=== PATIENT | female | born 1990 | race American Indian/Alaskan Native ===

== ENCOUNTER 2016-09-24 13:28 | Emergency (ER) | payer OTHER ==
[~2016-09-24] VITALS: Ht 175.3 cm; Wt 113.4 kg
[~2016-09-24 13:28] MED LIST: CLINDAMYCIN HC300 MG PO; DEPO-PROVE150 MG/1 M IM; IBUPROFEN200 MG PO; IBUPROFEN600 MG PO; NORCO 5-325 TA1 EACH PO; PRENATAL LOW I1 EACH PO; TYLENOL325 MG PO; VICODIN 5-3001 EACH PO; ZOFRAN ODT8 MG PO
== END 2016-09-24 15:46 | disposition home or self-care (01) ==
LOC: ED 13:28
DX: R42 Dizziness and giddiness (principal); R03.1 Nonspecific low blood-pressure reading; D50.9 Iron deficiency anemia, unspecified; Z79.899 Other long term (current) drug therapy
CPT/HCPCS: 80053; 81001; 84703; 85025; 96360; 96361; 99283; J7030

== ENCOUNTER 2016-09-30 09:15 | Emergency (ER) | payer OTHER ==
[~2016-09-30] VITALS: Ht 175.3 cm; Wt 113.4 kg
[2016-09-30] MEDS ORDERED: ZOFRAN ODT4 MG PO (10:22)
== END 2016-09-30 11:10 | disposition home or self-care (01) ==
LOC: ED 09:15
DX: K52.9 Noninfective gastroenteritis and colitis, unspecified (principal); E86.0 Dehydration; Z90.49 Acquired absence of other specified parts of digestive tract
CPT/HCPCS: 81001; 84703; 99283

== ENCOUNTER 2016-12-23 22:20 | Emergency (ER) | payer OTHER ==
[~2016-12-23] VITALS: Ht 175.3 cm; Wt 113.4 kg
[~2016-12-23 22:20] MED LIST changes: +ZOFRAN ODT4 MG PO
--- NOTE | 2016-12-25 14:23 | EKG ---
[facility] [address] [facility] [place] [address] Signed Normal sinus rhythm Normal ECG No previous ECGs available Confirmed by CHRISTINA CHAVEZ MD ([id number]) on 12/25/2016 2:22:43 PM Electronically Signed By: CHRISTINA CHAVEZ MD 12/25/16 1423 PATIENT NAME: MICHELLE RAYO Electrocardiogram DATE OF : [birth year] PHYSICIAN: CHRISTINA CHAVEZ MD REPORT #: [id number] REPORT IS CONFIDENTIAL AND NOT TO BE RELEASED WITHOUT AUTHORIZATION
== END 2016-12-24 | disposition home or self-care (01) ==
LOC: ED 22:20
DX: F41.9 Anxiety disorder, unspecified (principal)
CPT/HCPCS: 71020; 80053; 83735; 84484; 84703; 85025; 93005; 93010; 99284

== ENCOUNTER 2017-01-24 22:57 | Emergency (ER) | payer OTHER ==
[~2017-01-24] VITALS: Ht 175.3 cm; Wt 117.9 kg
== END 2017-01-25 01:05 | disposition home or self-care (01) ==
LOC: ED 22:57
DX: O21.9 Vomiting of pregnancy, unspecified (principal); Z90.49 Acquired absence of other specified parts of digestive tract; Z3A.01 Less than 8 weeks gestation of pregnancy
CPT/HCPCS: 81001; 84703; 96361; 96374; 99283; J1200; J7030

== ENCOUNTER 2017-01-31 21:58 | Emergency (ER) | payer OTHER ==
[~2017-01-31] VITALS: Ht 175.3 cm; Wt 117.9 kg
[2017-01-31] MEDS ORDERED: PROMETHAZINE12.5 M1 PO (22:15)
== END 2017-02-01 01:17 | disposition home or self-care (01) ==
LOC: ED 21:58
DX: O21.0 Mild hyperemesis gravidarum (principal); Z90.49 Acquired absence of other specified parts of digestive tract; Z3A.01 Less than 8 weeks gestation of pregnancy
CPT/HCPCS: 80053; 81001; 85025; 96361; 96374; 99283; J1200; J7030; J7040

== ENCOUNTER 2017-02-03 22:07 | Emergency (ER) | payer OTHER ==
[~2017-02-03 22:07] MED LIST changes: +PROMETHAZINE12.5 M1 PO
== END 2017-02-03 22:41 | disposition left against medical advice (07) ==
LOC: ED 22:07
DX: Z53.21 Procedure and treatment not carried out due to patient leaving prior to being seen by health care provider (principal)

== ENCOUNTER 2017-02-05 10:42 | Emergency (ER) | payer OTHER ==
[~2017-02-05] VITALS: Ht 175.3 cm; Wt 117.9 kg
[2017-02-05] MEDS ORDERED: VITAMIN B-625 MG PO (12:15)
[2017-02-05] MEDS ORDERED: K-TAB ER20 MEQ PO (12:41)
== END 2017-02-05 12:58 | disposition home or self-care (01) ==
LOC: ED 10:42
DX: O21.1 Hyperemesis gravidarum with metabolic disturbance (principal); Z3A.10 10 weeks gestation of pregnancy; Z90.49 Acquired absence of other specified parts of digestive tract
CPT/HCPCS: 80048; 96360; 99283; J7030

== ENCOUNTER 2017-02-11 11:03 | Emergency (ER) | payer OTHER ==
[~2017-02-11] VITALS: Ht 175.3 cm; Wt 117.9 kg
[~2017-02-11 11:03] MED LIST changes: +K-TAB ER20 MEQ PO; +VITAMIN B-625 MG PO
[2017-02-11] MEDS ORDERED: PRENATA CHEWAB1 EACH PO (11:14)
[2017-02-11] MEDS ORDERED: K-TAB ER20 MEQ PO (13:55)
[2017-02-11] MEDS ORDERED: ZOFRAN ODT4 MG PO (13:55)
== END 2017-02-11 14:26 | disposition home or self-care (01) ==
LOC: ED 11:03
DX: O21.9 Vomiting of pregnancy, unspecified (principal); O99.281 Endocrine, nutritional and metabolic diseases complicating pregnancy, first trimester; E87.6 Hypokalemia; Z3A.08 8 weeks gestation of pregnancy; Z90.49 Acquired absence of other specified parts of digestive tract; Z79.899 Other long term (current) drug therapy
CPT/HCPCS: 80053; 81001; 82150; 83690; 84703; 85025; 96361; 96374; 96375; 99283; J2405; J7030

== ENCOUNTER 2017-02-25 11:37 | Inpatient (IN) | payer OTHER ==
[~2017-02-25] VITALS: Ht 175.3 cm; Wt 107.0 kg
[~2017-02-25 11:37] MED LIST changes: +PRENATA CHEWAB1 EACH PO
[2017-02-25] MEDS ORDERED: PROCHLORPERAZIN10 MG PO (12:21)
[2017-02-25] MEDS ORDERED: DIPHENHYDRAMINE25 MG PO (12:21)
[2017-02-25] MEDS ORDERED: POTASSIUM CHLO20 ME1 PO (15:39)
--- NOTE | 2017-02-27 12:29 | HP ---
[facility] [address] [place], [place] [address] Signed ADMISSION DATE: 02/25/2017 REASON FOR ADMISSION: Acute acalculous cholecystitis, concurrent 10 weeks intrauterine gestation. HISTORY OF PRESENT ILLNESS: This 26-year-old [place] woman ([facility] from [place]) is accompanied by her "fiance" and seen for persistent right upper abdominal pain. The patient tells me she has been seen in the emergency room several times for this. Review of her medical record does not show such findings so far as I can tell; however, she was seen this evening by Dr. Marion Sharma, emergency room physician, and was noted to have right subcostal pain, persistent or recurrent, also feeling weak and dizzy. She has had some vomiting as well. She was noted on lab studies to have hypokalemia. 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 Ivette Cruz. The patient has had 2 children in the past, one age 5, the other 1. Of note, her mother, who is visiting, is taking care of those children at this time. Her evaluation today included a gallbladder ultrasound, which showed sludge, but no evidence of shadowing gallstones. I have reviewed the ultrasound myself and it does show thickening of the gallbladder wall and sludge most notably. She concurrently was noted to have a somewhat elevated bilirubin of 1.3 with an AST of 51, an ALT of 76, normal alkaline phosphatase of 85. Lipase level was 22. Electrolytes were notable for potassium of 2.7, bicarb of 16, and creatinine of 0.4. Her glucose was 86. PAST MEDICAL HISTORY: Significant for appendectomy, performed in [place] in the distant past. SOCIAL HISTORY: She has her fiance who accompanies her at this time. Her mother is visiting her and watching her 2 children, ages 5 and 1. She is not of the [place]. REVIEW OF SYSTEMS: She denies any shortness of breath or actual chest pain. She has had no dysphagia, dysuria, hematemesis, or hematuria. Electronically Signed By: ASHER DUBOSE MD 02/27/17 1229 PATIENT NAME: MICHELLE RAYO HISTORY AND PHYSICAL DATE OF : [birth year] PHYSICIAN: ASHER DUBOSE MD REPORT #: [id number] REPORT IS CONFIDENTIAL AND NOT TO BE RELEASED WITHOUT AUTHORIZATION [facility] [address], [place] [address] Signed PHYSICAL EXAMINATION: GENERAL: A pleasant, nontoxic-appearing [place]an woman who is lying supine in bed. Her fiance is nearby. HEENT: Mucous membranes are slightly dry. Trachea is midline. She has no hoarseness. CHEST: Clear. HEART: Regular without murmur. ABDOMEN: Obese, but soft. There is tenderness in the right subcostal area. There is no palpable mass. There is no sign of ascites. EXTREMITIES: No clubbing, cyanosis, or edema. LABORATORY STUDIES: Show a white count of 5.4, hematocrit 39.7, and platelets 131,000. Chem profile abnormal for potassium of 2.7, bicarb of 16, and creatinine of 0.4. Bilirubin of 1.3, AST 51, ALT 76, and alkaline phosphatase normal at 85. Lipase 22. Urinalysis was essentially normal, though there were white cell casts. White cells were 5 per high-power field. ASSESSMENT: The patient has acute acalculous cholecystitis, showing gallbladder wall thickening and gallbladder sludge without stones. Elevated liver enzymes are minimally elevated and essentially related to a perihepatitis from the cholecystitis itself. I discussed with her the pathophysiology of biliary disease and general recommendation of treatment to include cholecystectomy. Given her stage of at only 10 weeks, this would be not optimal as regard to safety for the fetus regarding the anesthesia and so on. If possible, we will try to improve her situation to allow progression of her gestation to the 2nd trimester and consider cholecystectomy at that point. If she has unrelenting problem, she may still require cholecystectomy in the 1st trimester, however. We will initiate antibiotic therapy, pain medication, and advance diet when symptoms are improving to assess her progress. She is aware that intrauterine gestation () is nonviable at less than approximately 24 weeks and that miscarriage is common even without concurrent problems including cholecystitis. I am hopeful and optimistic that her current situation will not precipitate a miscarriage, and treatment of her cholecystitis will be undertaken in a prudent and reasonable way so as to optimize both her and her fetus' healthy. Electronically Signed By: ASHER DUBOSE MD 02/27/17 1229 PATIENT NAME: MICHELLE RAYO HISTORY AND PHYSICAL DATE OF : [birth year] PHYSICIAN: ASHER DUBOSE MD REPORT #: [id number] REPORT IS CONFIDENTIAL AND NOT TO BE RELEASED WITHOUT AUTHORIZATION [address] [address] Signed Asher Dubose MD JM/MODL /[id number] cc: MD Dr. Marion Delong [facility] Electronically Signed By: ASHER DUBOSE MD 02/27/17 1229 PATIENT NAME: MICHELLE RAYO KALEY HISTORY AND PHYSICAL DATE OF : [birth year] PHYSICIAN: ASHER DUBOSE MD REPORT #: [id number] REPORT IS CONFIDENTIAL AND NOT TO BE RELEASED WITHOUT AUTHORIZATION
[2017-03-02] MEDS ORDERED: HYDROCODON-ACE1 EA10 PO (09:27)
[2017-03-02] MEDS ORDERED: PREPLUS CA-FE1 EACH PO (09:28)
[2017-03-02] MEDS ORDERED: MAPAP325 MG PO (09:28)
--- NOTE | 2017-03-03 14:55 | OR ---
[facility] [address] [place], [place] [address] Signed DATE OF OPERATION: 03/01/2017 SURGEON: Asher Dubose MD PREOPERATIVE DIAGNOSES: 1. Persistent acute calculous cholecystitis. 2. 11 weeks' intrauterine gestation. 3. Obesity. POSTOPERATIVE DIAGNOSES: 1. Persistent acute calculous cholecystitis. 2. 11 weeks' intrauterine gestation. 3. Obesity. 4. "[place] gallbladder.". PROCEDURES: 1. Laparoscopic cholecystectomy with intraoperative cholangiogram. 2. Surgeon-directed fluoroscopy. SURGEON: Asher Dubose MD ANESTHESIA: General endotracheal, [place] BOX TURNER and local 20 mL of 0.25% Marcaine. INDICATION: This 26-year-old woman is at about 11 weeks. Her primary mva operator is Dr. Cruz. She has been having several weeks of nausea and inability to tolerate oral intake and has lost nearly 23 pounds from this. She has also noted to have 2 other children, ages 5 and 1. Neither which was associated with nausea or vomiting particularly. She was seen in the emergency room on February 25, 2017, and evaluated and found on gallbladder ultrasound to have considerable amount of sludge and some thickening of the gallbladder wall. Her liver enzymes were only minimally elevated. She has been managed conservatively with pain medication, antibiotic therapy, and so forth, but remains unable to really tolerate any oral intake, which I believe is related to her acalculous cholecystitis. Dr. Cruz has evaluated her fully and at this point, it is deemed most appropriate to proceed with cholecystectomy. Our attempts at delaying her situation into the 2nd trimester have been unsuccessful and the overall situation calls for definitive treatment of the cholecystitis. The risks of bleeding, infection, Electronically Signed By: ASHER DUBOSE MD 03/03/17 1455 PATIENT NAME: MICHELLE RAYO OPERATIVE REPORT DATE OF : [birth year] PHYSICIAN: ASHER DUBOSE MD REPORT #: [id number] REPORT IS CONFIDENTIAL AND NOT TO BE RELEASED WITHOUT AUTHORIZATION [facility] [address] [place], [place] [address] Signed bile duct injury, need for open procedure, need for common duct exploration, and other unforeseen complications related to cholecystectomy were reviewed with the patient, who understands. Additionally, we explained to her the issues related to intrauterine gestation. She understands these issues as well. A ultrasound was performed prior to entry to the operating room, confirming heart tones and viable intrauterine gestation. FINDINGS: The patient is significantly obese. The liver had only mild fatty infiltration. The gallbladder was subacutely inflamed with omental adhesions attached as well. The gallbladder once excised was found to have thick dense sludge within it and a mulberry (strawberry) gallbladder mucosa. The cholangiogram was entirely normal. There were no other findings of concern. DESCRIPTION OF PROCEDURE: The patient was brought to the operating room, given a general endotracheal anesthetic. Preoperative antibiotic Ancef was given. Sequential compression device stockings used and heparin subcutaneously administered. The abdomen was prepared with a chlorhexidine solution and draped sterilely. An infraumbilical incision was made and using an open Liya cannula technique, pneumoperitoneum was achieved to a level of 14 mmHg with carbon dioxide gas. Intra-abdominal inspection showed no sign of ascites or carcinomatosis. The gallbladder was largely obscured from view due to her obesity. The liver had mild fatty infiltration. Three additional trocars were placed in usual configuration in the subxiphoid, right midclavicular, and right anterior axillary line. The gallbladder was elevated cephalad and found to have fatty omental adhesions densely adherent to it. Further elevation of the gallbladder was undertaken and the omental adhesions taken down with blunt and electrocautery dissection ultimately allowing for good elevation of the gallbladder. The infundibulum was grasped and retracted laterally and using blunt and electrocautery, the fatty peritoneum overlying the infundibulum of the gallbladder was dissected free ultimately identifying well the cystic duct. A clip was applied across the gallbladder cystic duct junction and transverse choledochotomy was made in the cystic duct. Retrograde milking of the cystic duct showed thickened bile that was yellow. Using an Veras type cholangiocatheter, intraoperative cholangiography was undertaken showing free flow of contrast in biliary tree with prompt emptying into the duodenum. Conventional biliary anatomy was noted. There was no filling defect or other problem. The catheter was removed and the cystic duct was triply clipped and divided. Of note, a lead shield was used to protect the uterus during the course of the fluoroscopy. The gallbladder was dissected free in a retrograde fashion. The subvesical arterial branch was clipped, though not particularly divided. The gallbladder was placed in an endobag and extracted through the infraumbilical port site and opened on the back table Electronically Signed By: ASHER DUBOSE MD 03/03/17 1970 PATIENT NAME: MICHELLE RAYO OPERATIVE REPORT DATE OF : [birth year] PHYSICIAN: ASHER DUBOES MD REPORT #: [id number] REPORT IS CONFIDENTIAL AND NOT TO BE RELEASED WITHOUT AUTHORIZATION [address] [address] Signed and found to have thick tenacious sludge-like bile as well as a strawberry gallbladder mucosa. There was no sign of neoplasm. Irrigation was undertaken in the subhepatic space. Good hemostasis was noted. Excess irrigation fluid was suctioned free. The trocars were removed under direct visualization. Some application of electrocautery was needed in the right midclavicular 5 mm port site to secure hemostasis fully. The infraumbilical fascial incision was reapproximated with interrupted 0 Vicryl suture. All wounds were copiously irrigated with saline solution. The skin was closed with interrupted 3-0 Vicryl. Steri-Strips were applied as well. A 20 mL of 0.25% Marcaine was injected for local analgesic effect. She was extubated without problem and taken to the recovery room in good condition having suffered no complications. Sponge, needle, and instrument counts reported as correct x3. MD SAMMIE Duggan/SHANIKA /[id number] cc: Ivette Cruz MD Electronically Signed By: ASHER DUBOSE MD 03/03/17 1455 PATIENT NAME: MICHELLE RAYO KALEY OPERATIVE REPORT DATE OF : [birth year] PHYSICIAN: ASHER DUBOSE MD REPORT #: [id number] REPORT IS CONFIDENTIAL AND NOT TO BE RELEASED WITHOUT AUTHORIZATION
--- NOTE | 2017-03-19 09:21 | CONS ---
[facility] [address] [place], [place] [address] Signed DATE OF CONSULTATION: This is a late entry for OB consult that was performed on February 26, 2017. It was put into the computer system, but apparently the information was lost, so I am re-dictating this. HISTORY OF PRESENT ILLNESS: The patient is a 26-year-old, 3, para 2 with 11-week intrauterine gestation. The patient is well known to me, seen in the office on 02/01/2017, and seen in the emergency department on 01/31/2017 in [place] for hyperemesis gravidarum, where she was IV hydrated and subsequently, she was treated at [facility] most recently by me as an outpatient for hypokalemia and hyperemesis on February 22, 2017. The patient was scheduled for ultrasounds as outpatient to evaluate both and her gallbladder, but these were canceled due to lack of insurance and subsequently rescheduled for the week of her admission. The patient has had a 21-pound weight loss over the past 3 weeks and was treated for hypokalemia and hyper emesis without improvement, both IV and orally. She has not been able to tolerate oral medications or rectal suppositories for her emesis. PAST MEDICAL HISTORY: Significant for obesity, rosacea, hidradenitis, hyperemesis gravidarum with metabolic changes and biliary colic. PAST SURGICAL HISTORY: Appendectomy in 2009. OB HISTORY: Spontaneous vaginal delivery in 2011 and 2015. ALLERGIES: No known drug allergies. MEDICATIONS: Have been: 1. Unisom. 2. Vitamin B. 3. Promethazine both suppositories and oral. 4. Potassium orally. FAMILY HISTORY: Significant for maternal grandfather with diabetes and aunt with diabetes. SOCIAL HISTORY: She is engaged, lives with her fiance and 2 children. No alcohol or illicit drug use. Electronically Signed By: IVETTE MAYERS MD 03/19/17 0921 PATIENT NAME: MICHELLE RAYO CONSULTATION DATE OF : [birth year] PHYSICIAN: IVETTE MAYERS MD REPORT #: [id number] REPORT IS CONFIDENTIAL AND NOT TO BE RELEASED WITHOUT AUTHORIZATION [facility] [address] [place], [place] [address] Signed No tobacco use. DIAGNOSTIC DATA: On ultrasound of the uterus, there was an 11-week intrauterine . Ultrasound of the gallbladder was consistent with sludge and thickening of the gallbladder. PHYSICAL EXAMINATION: GENERAL: A pale, well-developed, female. VITAL SIGNS: Afebrile. Vital signs are stable. LUNGS: Clear bilaterally to auscultation. CARDIOVASCULAR: Regular rate and rhythm. No murmur. ABDOMEN: Soft, gravid. Right upper quadrant tenderness is quite significant and she does have heart tones on Doppler. EXTREMITIES: Nontender without edema. IMPRESSION AND PLAN: A 26-year-old, 3, para 2 with 11-week intrauterine and hyperemesis gravidarum, hypokalemia, 25-pound weight loss, recent dehydration, and multiple hospitalizations and outpatient treatments, and I believe these problems are due to her biliary colic as the primary source. The patient is not able to be controlled medically and thereby needs cholecystectomy as discussed with Dr. Ortiz. The thank you for consultation. Ivette Mayers MD JKM/MODL /[id number] Electronically Signed By: IVETTE MAYERS MD 03/19/17 0921 PATIENT NAME: MICHELLE RAYO CONSULTATION DATE OF : [birth year] PHYSICIAN: IVETTE MAYERS MD REPORT #: [id number] REPORT IS CONFIDENTIAL AND NOT TO BE RELEASED WITHOUT AUTHORIZATION
== END 2017-03-02 14:01 | disposition home or self-care (01) | DRG 781 ==
LOC: ED 11:37 → MS 19:07
PROVIDERS: ADMIT Surgery
PROC: BF101ZZ Fluoroscopy of Bile Ducts using Low Osmolar Contrast (ICD-10-PCS; 2017-03-01)
PROC: 0FT44ZZ Resection of Gallbladder, Percutaneous Endoscopic Approach (ICD-10-PCS; principal; 2017-03-01 08:15)
DX: O99.611 Diseases of the digestive system complicating pregnancy, first trimester (principal); K81.0 Acute cholecystitis; O26.611 Liver and biliary tract disorders in pregnancy, first trimester; K76.0 Fatty (change of) liver, not elsewhere classified; O99.211 Obesity complicating pregnancy, first trimester; E66.9 Obesity, unspecified; O99.281 Endocrine, nutritional and metabolic diseases complicating pregnancy, first trimester; E87.6 Hypokalemia; Z3A.11 11 weeks gestation of pregnancy; Z68.34 Body mass index [BMI] 34.0-34.9, adult
CPT/HCPCS: 00790; 36415; 74300; 76705; 76801; 76817; 80048; 80053; 81001; 82150; 82247; 82465; 83615; 83690; 84100; 84478; 84550; 85025; 88304; 96361; 96365; 96375; 99285; G0378; J0690; J0780; J1200; J1644; J2270; J2405; J2550; J2704; J2765; J3010; J3411; J3480; J7042; J7050; J7120; Q9967

== ENCOUNTER 2017-09-03 00:11 | Inpatient (IN) | payer OTHER ==
[~2017-09-03] VITALS: Ht 175.3 cm; Wt 116.0 kg
[~2017-09-03 00:11] MED LIST changes: +DIPHENHYDRAMINE25 MG PO; +HYDROCODON-ACE1 EA10 PO; +MAPAP325 MG PO; +POTASSIUM CHLO20 ME1 PO; +PREPLUS CA-FE1 EACH PO; +PROCHLORPERAZIN10 MG PO
[2017-09-03] MEDS ORDERED: IRON325 M1 PO (01:06)
--- NOTE | 2017-09-04 08:24 | PR ---
[facility] [address] [facility] [place], [place] [address] Signed PP Progress Notes Datetime Report Generated by CPN: 09/04/2017 08:24 SUBJECTIVE: [id number] Pain: Within normal limits Vital Signs: [id number] Vital Signs: Reviewed; Within Normal Limits EXAM: [id number] Cardiovascular: Not Done Respiratory: Not Done Abdomen/Uterus: Abnormal Lochia: Normal Vulva/Perineum: Not Done Breasts: Not Done CVA Tenderness: Not Done Extremities: Normal Incision: Not Applicable Progress: Normal Exam Comments: Fundus firm, NT @ U-1. H/H 10.9/31.4, WBC 11.2, plat 216k IMPRESSION/PLAN/PROCEDURES: [id number] Impression: Normal progression Plan: Continue present management Procedures: None Progress Notes: Doing well. She does not wish discharge today. Signing Physician: Phan Zacarias MD Copies: ~ *Electronically Signed* 09/04/17 0824 PHAN ZACARIAS MD PATIENT NAME: MICHELLE RAYO KALEY PROGRESS NOTE DATE OF : [birth year] PHYSICIAN: PHAN ZACARIAS MD RPT #: [id number] REPORT IS CONFIDENTIAL AND NOT TO BE RELEASED WITHOUT AUTHORIZATION
--- NOTE | 2017-09-05 07:06 | PR ---
[facility] [address] [facility] [place], [place] [address] Signed PP Progress Notes Datetime Report Generated by CPN: 09/05/2017 07:06 SUBJECTIVE: [id number] Pain: Within normal limits Nausea/Vomiting: Denies Vital Signs: [id number] Vital Signs: Reviewed; Within Normal Limits EXAM: [id number] Cardiovascular: Not Done Respiratory: Not Done Abdomen/Uterus: Abnormal Lochia: Normal Vulva/Perineum: Not Done Breasts: Not Done CVA Tenderness: Not Done Extremities: Normal Incision: Not Applicable Progress: Normal Exam Comments: Fundus firm, NT @ U-1. IMPRESSION/PLAN/PROCEDURES: [id number] Impression: Normal progression Plan: Discharge Procedures: None Progress Notes: Doing well. She is ready for D/C. Signing Physician: Annalee Zacarias MD Copies: ~ *Electronically Signed* 09/05/17705 ANNALEE ZACARIAS MD PATIENT NAME: MICHELLE RAYO PROGRESS NOTE DATE OF : [birth year] PHYSICIAN: ANNALEE ZACARIAS MD RPT #: [id number] REPORT IS CONFIDENTIAL AND NOT TO BE RELEASED WITHOUT AUTHORIZATION
== END 2017-09-05 10:20 | disposition home or self-care (01) | DRG 775 ==
LOC: FBCO → FBC 00:11 → FBCO 09-15 13:13 → EDSTATUS 09-17 07:42 → FBCO 09-17 14:18
PROVIDERS: ADMIT Obstetrics & Gynecology
PROC: 10E0XZZ Delivery of Products of Conception, External Approach (ICD-10-PCS; principal; 2017-09-03)
PROC: 0UQMXZZ Repair Vulva, External Approach (ICD-10-PCS; 2017-09-03)
PROC: 3E0P7VZ Introduction of Hormone into Female Reproductive, Via Natural or Artificial Opening (ICD-10-PCS; 2017-09-03)
PROC: 10907ZC Drainage of Amniotic Fluid, Therapeutic from Products of Conception, Via Natural or Artificial Opening (ICD-10-PCS; 2017-09-03)
DX: O36.63X0 Maternal care for excessive fetal growth, third trimester, not applicable or unspecified (principal); O99.214 Obesity complicating childbirth; E66.9 Obesity, unspecified; O26.03 Excessive weight gain in pregnancy, third trimester; O71.82 Other specified trauma to perineum and vulva; O69.81X0 Labor and delivery complicated by cord around neck, without compression, not applicable or unspecified; O43.113 Circumvallate placenta, third trimester; O75.89 Other specified complications of labor and delivery; Z68.36 Body mass index [BMI] 36.0-36.9, adult; Z3A.38 38 weeks gestation of pregnancy; Z37.0 Single live birth
CPT/HCPCS: 36415; 85027; J2550; J2590; J3010; J7120

== ENCOUNTER 2017-11-04 02:09 | Emergency (ER) | payer OTHER ==
[~2017-11-04] VITALS: Ht 175.3 cm; Wt 116.6 kg
--- OUTSIDE RECORDS SUMMARY | ~2017-11-04 | XMS | Clinical Summary ---
Demographics + + + | Address | [address] [place] [address] [address] | | | [place] [address] | + + + | Home Phone | | + + + | Preferred Language | Unknown | + + + | Marital Status | Single | + + + | Faith Affiliation | Unknown | + + + | Race | Unknown | + + + | Ethnic Group | Unknown | + + + Author + + + | Author | [facility] | | | and [place] | + + + | Organization | [facility] | | | and [place] | + + + | Address | Unknown | + + + | Phone | Unavailable | + + + Support + + +---------+ + | Name | Relationship | Address | Phone | + + +---------+ + | None,Provided | ECON | Unknown | | + + +---------+ + Care Team Providers + +------+ + | Care 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 | Disp. | Refills | Star | End | Statu | | | | | | t | Date | s | | | | | | Date | | | + + + +---------+------+------+-------+ | potassium chloride | Take 15 mLs by mouth | 240 mL | 0 | 01/0 | | Activ | | 20 mEq/15 mL liquid | Daily. | | | 2/20 | | e | | | | | | 18 | | | + + + +---------+------+------+-------+ Active Problems Not on file Social History + +-------+ +--------+------+ | Tobacco Use | Types | Packs/Day | Years | Date | | | | | Used | | + +-------+ +--------+------+ | Never Assessed | | | | | + +-------+ +--------+------+ + + + + | Currently | Estimated Date of Delivery | Comments | + + + + | Yes | | | + + + + + + + | Sex Assigned at | Date Recorded | | | | + + + | Not on file | | + + + Last Filed Vital Signs + + + + | Vital Sign | Reading | Time Taken | + + + + | Blood Pressure | 105/66 | 02/20/2017312 PST | + + + + | Pulse | 63 | 02/20/2017312 PST | + + + + | Temperature | 36.6 C (97.8 F) | 02/19/20171952 PST | + + + + | Respiratory Rate | 16 | 02/19/20171952 PST | + + + + | Oxygen Saturation | 100% | 02/20/2017312 PST | + + + + | Inhaled Oxygen | - | - | | Concentration | | | + + + + | Weight | 104.7 kg (230 lb | 02/19/20171952 PST | | | 13.2 oz) | | + + + + | Height | 175.3 cm (5' 9") | 02/19/20171952 PST | + + + + | Body Mass Index | 34.09 | 02/19/20171952 PST | + + + + Plan of Treatment + + + + + | Health Maintenance | Due Date | Last Done | Comments | + + + + + | Vaccine: | | | | | Dtap/Tdap/Td (1 - | 1 | | | | Tdap) | | | | + + + + + | Cervical Cancer | | | | | Screening (Pap) | 3 | | | + + + + + | Vaccine: Influenza | | | | | (#1) | 8 | | | + + + + + Results Not on filefrom Last 3 Months Insurance + +--------+ +--------+ +---------+ | Payer | Benefi | Subscriber | Type | Phone | Address | | | t Plan | ID | | | | | | / | | | | | | | Group | | | | | + +--------+ +--------+ +---------+ | [place]ICA[place] | MEDICA | [id number] | Med[place] | [phone] | | | [place] | | id | [phone] | | | | PLUS | | | | | + +--------+ +--------+ +---------+ + +--------+ +--------+ + + | Guarantor Name | Accoun | Relation to | Date | Phone | Billing Address | | | t Type | Patient | of | | | | | | | | | | + +--------+ +--------+ + + | MICHELLE ROSARIO | Person | Self [birth year] Home: | [address] | | | al/Fam | | 1990 | [phone] | [address] [place] | | | [place] | | | [phone] | [phone] | + +--------+ +--------+ + +
--- OUTSIDE RECORDS SUMMARY | ~2017-11-04 | XMS | Clinical Summary ---
Demographics + + + | Address | [address] [place] [address] [address] | | | [place] [address] | + + + | Home Phone | | + + + | Preferred Language | Unknown | + + + | Marital Status | Single | + + + | Faith Affiliation | Unknown | + + + | Race | Unknown | + + + | Ethnic Group | Unknown | + + + Author + + + | Author | [facility] | | | and Leonelana | + + + | Organization | [facility] | | | and [...] Team Providers + +------+ + | Care Mother Baby Rn Name | Role | Phone | + [...] +---------+ | MEDICAID [place] | MEDICA | [id number] | Medica | [phone] | | [...] | Self | [birth year] Home: | [address] | | | al/Fam | | 1990 | [phone] | [address] [place] | | | [place] | | | [phone] | + +--------+ +--------+ + +
[~2017-11-04 02:09] MED LIST changes: +IRON325 M1 PO
--- OUTSIDE RECORDS SUMMARY | 2017-11-04 02:14 | XMS ---
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 02/03/2017 22:08 - Patient eloped before treatment completed. Details: LWBS CRITERIA MET - Group Notification CARE PROVIDERS DR SULY MAYERS Primary Care Current PHONE: [phone] Alexus has no Care Guidelines for this patient. [facility] ([facility] MO.) [facility] TOTAL 9 NOTE: Visits indicate total known visits. 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 - Endocrine, nutritional and metabolic diseases complicating , first trimester - Hypokalemia - 8 weeks gestation of - Acquired absence of other specified parts of digestive tract 02/05/2017 10:43 [facility] [place] TYPE: Emergency COMPLAINT: - VOMITING/ 7 WEEKS DIAGNOSES: - Acquired absence of other specified parts of digestive tract - 10 weeks gestation of - Hemorrhage in early , unspecified - Hyperemesis gravidarum with metabolic disturbance 02/03/2017 22:08 [facility] [place] TYPE: Emergency COMPLAINT: - VOMITING, R SIDED ABD PAIN, DIAGNOSES: - Unspecified abdominal pain - Procedure and treatment not carried out due to patient leaving prior to being seen by health care provider - Vomiting, unspecified 01/31/2017 21:59 [place] [place] TYPE: Emergency COMPLAINT: - VOMITING,6 WKS GESTATION DIAGNOSES: - Less than 8 weeks gestation of - Mild hyperemesis gravidarum - Acquired absence of other specified parts of digestive tract 01/24/2017 22:[address] [facility] [place] TYPE: Emergency COMPLAINT: - VOMITING,NAUSEA,4 WEEKS GESTATION DIAGNOSES: - Acquired absence of other specified parts of digestive tract - Mild hyperemesis gravidarum - Less than 8 weeks gestation of - Vomiting of , unspecified 12/23/2016 22:21 [facility] [place] TYPE: Emergency COMPLAINT: - SOB,CHEST TIGHTNESS DIAGNOSES: - Tachycardia, unspecified - Anxiety disorder, unspecified INPATIENT VISIT TRACKING (12 MO.) No inpatient visits to display in this time frame [email or web address]
[2017-11-04] MEDS ORDERED: RANITIDINE HCL150 MG PO (02:25)
[2017-11-04] MEDS ORDERED: OMEPRAZOLE20 MG PO (03:29)
== END 2017-11-04 04:01 | disposition home or self-care (01) ==
LOC: ED 02:09
DX: K30 Functional dyspepsia (principal); Z79.899 Other long term (current) drug therapy
CPT/HCPCS: 80053; 81001; 83690; 84703; 85025; 96374; 96375; 99284; J2405

== ENCOUNTER 2018-05-28 18:26 | Emergency (ER) | payer OTHER ==
[~2018-05-28] VITALS: Ht 175.3 cm; Wt 117.9 kg
--- OUTSIDE RECORDS SUMMARY | ~2018-05-28 | XMS | Clinical Summary ---
Demographics + + + | Address | [address] [place] [address] [address] | | | [place] [address] | + + + | Home Phone | | + + + | Preferred Language | Unknown | + + + | Marital Status | Single | + + + | Adventism Affiliation | Unknown | + + + | Race | Unknown | + + + | Ethnic Group | Unknown | + + + Author + + + | Author | [facility] | | | and Leonelana | + + + | Organization | [facility] | | | and [...] Team Providers + +------+ + | Care Mint Wafer Depositor Name | Role | Phone | + +------+ + | Unknown, Doctor | PP | | + +------+ + Allergies No Known Allergies Medications + + + +---------+------+------+-------+ | Medication | Sig | Dispensed | Refills | Star | End | Statu | | | | | | t | Date | s | | | | | | Date | | | + + + +---------+------+------+-------+ | raNITIdine | Take 150 mg by mouth | | 0 | | | Activ | | (ZANTAC) 150 MG | 2 times daily. | | | | | e | | capsule | | | | | | | + + + +---------+------+------+-------+ | ferrous sulfate | Take 325 mg by mouth | | 0 | | | Activ | | 325 mg tablet | daily (with | | | | | e | | | breakfast). | | | | | | + + + +---------+------+------+-------+ | sucralfate | Take 1 tablet by | 60 | 0 | 09/2 | | Activ | | (CARAFATE) 1 g | mouth 2 times daily. | tablet | | 7/20 | | e | | tablet | | | | 18 | | | + + + +---------+------+------+-------+ | dicyclomine | Take 1 tablet by | 120 | 0 | 09/2 | | Activ | | (BENTYL) 20 MG | mouth every 6 hours | tablet | | 7/20 | | e | | tablet | as needed. | | | 18 | | | [...] + +---------+ + | Alcohol Use | Drinks/We | oz/Week | Comments | | | ek | | | + + +---------+ + | No [...] recent travel history available. | + + Last Filed Vital Signs + + + + | Vital Sign | Reading | Time Taken | + + + + | Blood Pressure | 107/74 | 11/15/201729 PDT | + + + + | Pulse | 62 | 11/15/201729 PDT | + + + + | Temperature | 37.6 C (99.7 F) | 11/14/20172224 PDT | + + + + | Respiratory Rate | 16 | 11/14/20172224 PDT | + + + + | Oxygen Saturation | 96% | 11/15/201729 PDT | + + + + | Inhaled Oxygen | - | - | | Concentration | | | + + + + | Weight | 113.4 kg (250 lb) | 11/14/20172224 PDT | + + + + | Height | 175.3 cm (5' 9") | 11/14/20172224 PDT | + + + + | Body Mass Index | 36.92 | 11/14/20172224 PDT | + + + + Plan of Treatment + + + + + | Health Maintenance | Due Date | Last Done | Comments | + + + + + | Vaccine: HPV (1 - | | | | | Female 3-dose | 7 | | | | series) | | | | + + + + + | Vaccine: | | | | | Dtap/Tdap/Td (1 - | 1 | | | | Tdap) | | | | + + + + + | Cervical Cancer | | | | | Screening (Pap) | 3 | | | + + + + + | Vaccine: Influenza | | | | | (Season Ended) | 9 | | | + + + + + Results Not on filefrom Last 3 Months Insurance + +--------+ +--------+ +---------+--------+ | Payer | Benefi | Subscriber | Effect | Phone | Address | Type | | | t Plan | ID | wong | | | | | | / | | Dates | | | | | | Group | | | | | | + +--------+ +--------+ +---------+--------+ | [employer] | [employer] | [id number] | | [phone] | | Medica | | MEDICAID HMO | HEALTH | | [phone]-Pr | 1 | | id | | | MDCD | | esent | | | | | [place] | | | | | | + +--------+ +--------+ +---------+--------+ + +--------+ +--------+ + + | Guarantor Name | Accoun | Relation to | Date | Phone | Billing Address | | | t Type | Patient | of | | | | | | | | | | + +--------+ +--------+ + + | Lisseth Rosario | Person | Self | [birth year] | [address] | | | al/Fam | | 1990 | [phone] | [address] [place] | | | [place] | | | [address] (Home) | [phone] | + +--------+ +--------+ + + Advance Directives Patient has advance care planning documents on file. For more information, please contact:[facility] [place] [address]
[~2018-05-28 18:26] MED LIST changes: +OMEPRAZOLE20 MG PO; +RANITIDINE HCL150 MG PO
--- OUTSIDE RECORDS SUMMARY | 2018-05-28 18:28 | XMS ---
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 Details: [facility] CRITERIA MET - Group Notification CARE PROVIDERS CONSTANTINO KIDD [facility] 11/07/2017-Current PHONE: Unknown DR SULY MAYERS Primary Care Current PHONE: [phone] Alexus has no Care Guidelines for this patient. E.D. VISIT COUNT (12 MO.) [address] TOTAL 3 NOTE: Visits indicate total known visits. ED/UCC VISIT TRACKING (12 MO.) 05/28/2018 18:[address] [facility] TYPE: Emergency COMPLAINT: - SOB,DIZZINESS 11/14/2017 21:32 [facility] TYPE: Emergency DIAGNOSES: - Epigastric pain - Medical Problem (Re-evaluation) - Diarrhea, unspecified - Abdominal Pain Re-evaluation - Abdominal Pain 11/04/2017 02:10 [facility] [place] TYPE: Emergency COMPLAINT: - ABD PAIN/FLANK PAIN DIAGNOSES: - Other penitentiary (current) drug therapy - Functional dyspepsia - Generalized abdominal pain INPATIENT VISIT TRACKING (12 MO.) No inpatient visits to display in this time frame [email or web address]
[2018-05-28] MEDS ORDERED: IRON18 MG PO (19:05)
[2018-05-28] MEDS ORDERED: PROVENTIL HFA6.7 GM INH (20:30)
== END 2018-05-28 20:44 | disposition home or self-care (01) ==
LOC: ED 18:26
DX: R06.00 Dyspnea, unspecified (principal)
CPT/HCPCS: 71046; 99284-25

== ENCOUNTER 2018-10-24 15:57 | Emergency (ER) | payer OTHER ==
[~2018-10-24] VITALS: Ht 175.3 cm; Wt 113.4 kg
[~2018-10-24 15:57] MED LIST changes: +IRON18 MG PO; +PROVENTIL HFA6.7 GM INH
--- OUTSIDE RECORDS SUMMARY | 2018-10-24 16:02 | XMS ---
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 11/07/2017-Current PHONE: Unknown DR SULY MAYERS Primary Care Current PHONE: [phone] Alexus has no Care Guidelines for this patient. Care History Medical/Surgical 05/29/2018 [facility] \T\middot;\T\nbsp; PATIENT IS A [employer] MEMBER. \T\middot;\T\nbsp; PLEASE REFER PATIENT TO [facility] FOR NON EMERGENT MEDICAL NEEDS. \T\middot;\ T\nbsp; [facility] CAN SEE PATIENTS SAME DAY FOR APTS IF PATIENT CALLS FIRST THING IN THE MORNING. E.D. VISIT COUNT (12 MO.) 1 [facility] 3 [facility] TOTAL 4 NOTE: Visits indicate total known visits. ED/UCC VISIT TRACKING (12 MO.) 10/24/2018 15:59 [facility] [place] TYPE: Emergency COMPLAINT: - CHEST PAIN 05/28/2018 18:27 [facility] [place] TYPE: Emergency COMPLAINT: - SOB,DIZZINESS DIAGNOSES: - Dyspnea, unspecified - Shortness of breath [facility]2017 [facility] DIAGNOSES: - Epigastric pain - Medical Problem (Re-evaluation) - Diarrhea, unspecified - Abdominal Pain Re-evaluation - Abdominal Pain [facility]2017 [facility] COMPLAINT: - ABD PAIN/FLANK PAIN DIAGNOSES: - Other [facility] (current) drug therapy - Functional dyspepsia - Generalized abdominal pain INPATIENT VISIT TRACKING (12 MO.) No inpatient visits to display in this time frame [email or web address]
[2018-10-24] MEDS ORDERED: ATIVAN1 MG PO (17:47)
--- NOTE | 2018-10-25 13:11 | EKG ---
[facility] [address] [facility] [place], [place] [address] Signed Normal sinus rhythm with sinus arrhythmia Normal ECG When compared with ECG of 23-DEC-2016 22:28, No significant change was found Confirmed by ANA WALLIS DO ([id number]) on 10/25/2018 1:10:58 PM Electronically Signed By: ANA WALLIS DO 10/25/18 1311 PATIENT NAME: MICHELLE FELIX KALEY Electrocardiogram DATE OF : [birth year] PHYSICIAN: ANA WALLIS DO REPORT #: [id number] REPORT IS CONFIDENTIAL AND NOT TO BE RELEASED WITHOUT AUTHORIZATION
== END 2018-10-24 17:57 | disposition home or self-care (01) ==
LOC: ED 15:57
DX: F43.9 Reaction to severe stress, unspecified (principal); R07.89 Other chest pain
CPT/HCPCS: 71045; 80053; 83690; 83735; 84484; 85025; 85379; 93005; 93010; 96374; 99285-25; J2060

== ENCOUNTER 2019-07-25 09:09 | Emergency (ER) | payer OTHER ==
[~2019-07-25] VITALS: Ht 175.3 cm; Wt 113.4 kg
--- OUTSIDE RECORDS SUMMARY | ~2019-07-25 | XMS | Encounter Summary ---
Demographics + + + | Address | [address] | | | [place] [address] | + + + | Home Phone | | + + + | Preferred Language | Unknown | + + + | Marital Status | Single | + + + | Jainism Affiliation | Unknown | + + + | Race | Unknown | + + + | Ethnic Group | Unknown | + + + Author + + + | Author | [facility] | | | and [place] | + + + | Organization | [facility] | | | and [place] | + + + | Address | Unknown | + + + | Phone | Unavailable | + + + Support + + +---------+ + | Name | Relationship | Address | Phone | + + +---------+ + | Raymond Sales ECON | Unknown | | + + +---------+ + Care Team Providers + +------+ + | Care Pipe Fittings Molder Name | Role | Phone | + +------+ + | Unknown, Doctor | PCP | | + +------+ + Reason for Visit + + + | Reason | Comments | + + + | Medical Problem | | | (Re-evaluation) | | + + + | Abdominal Pain | | | Re-evaluation | | + + + Encounter Details +--------+ + + + + | Date | Type | Department | Care Team | Description | +--------+ + + + + | 11/14/ | Emergency | [facility] | M[facility] K[facility], | Epigastric pain | | 2018 - | [facility] | MD [address] | (Primary Dx); | | | | CENTER [address] | [place], [place] | Diarrhea, | | 11/15/ | | [place], [place] | [address] | unspecified type | | 2018 | | [address] | | | | | | [phone] | | | +--------+ + + + + Social History + +-------+ +--------+------+ | Tobacco Use | Types | Packs/Day | Years | Date | | | | | Used | | + +-------+ +--------+------+ | Never Smoker | | | | | + +-------+ +--------+------+ + +---+---+---+ | Smokeless Tobacco: | | | | | Never Used | | | | + +---+---+---+ + + +---------+ + | Alcohol Use | Drinks/Week | oz/Week | Comments | + + +---------+ + | No | | | | + + +---------+ + + + + | Sex Assigned at | Date Recorded | | | | + + + | Not on file | | + + + + + + + | Job Start Date | Occupation | Industry | + + + + | Not on file | Not on file | Not on file | + + + + + + + + | Travel History | Travel Start | Travel End | + + + + + + | No recent travel history available. | + + documented as of this encounter Last Filed Vital Signs + + + + + | Vital Sign | Reading | Time Taken | Comments | + + + + + | Blood Pressure | 107/74 | 11/15/2017 12:30 AM | | | | | PDT | | + + + + + | Pulse | 62 | 11/15/2017 12:30 AM | | | | | PDT | | + + + + + | Temperature | 37.6 C (99.7 F) | 11/14/2017 10:25 PM | | | | | PDT | | + + + + + | Respiratory Rate | 16 | 11/14/2017 10:25 PM | | | | | PDT | | + + + + + | Oxygen Saturation | 96% | 11/15/2017 12:30 AM | | | | | PDT | | + + + + + | Inhaled Oxygen | - | - | | | Concentration | | | | + + + + + | Weight | 113.4 kg (250 lb) | 11/14/2017 10:25 PM | | | | | PDT | | + + + + + | Height | 175.3 cm (5' 9") | 11/14/2017 10:25 PM | | | | | PDT | | + + + + + | Body Mass Index | 36.92 | 11/14/2017 10:25 PM | | | | | PDT | | + + + + + documented in this encounter Discharge Instructions AttachmentsThe following attachments cannot be sent through Care Everywhere.Diarrhea, Treat ing (Greenlandic)Epigastric Pain (Uncertain Cause) (Greenlandic)documented in this encounter Medications at Time of Discharge + + + +---------+ + + | Medication | Sig | Dispensed | Refills | Start | End Date | | | | | | Date | | + + + +---------+ + + | dicyclomine | Take 1 tablet by | 120 | 0 | 11/16/19 | | | (BENTYL) 20 MG | mouth every 6 hours | tablet | | 18 | | | tablet | as needed. | | | | | + + + +---------+ + + | ferrous sulfate | Take 325 mg by mouth | | 0 | | | | 325 mg tablet | daily (with | | | | | | | breakfast). | | | | | + + + +---------+ + + | sucralfate | Take 1 tablet by | 60 | 0 | 11/16/19 | | | (CARAFATE) 1 g | mouth 2 times daily. | tablet | | 18 | | | tablet | | | | | | + + + +---------+ + + | raNITIdine | Take 150 mg by mouth | | 0 | | | | (ZANTAC) 150 MG | 2 times daily. | | | | 0 | | capsule | | | | | | + + + +---------+ + + documented as of this encounter Plan of Treatment + +------+--------+ + + | Name | Type | Priori | Associated Diagnoses | Date/Time | | | | ty | | | + +------+--------+ + + | ED INFORMATION | [facility] | Routin | | 11/14/2017 9:35 PM | | EXCHANGE | | e | | PDT | + +------+--------+ + + documented as of this encounter Procedures + +--------+ + + + | Procedure Name | Priori | Date/Time | Associated Diagnosis | Comments | | | ty | | | | + +--------+ + + + | EXTRA GOLD TOP TUBE | STAT | 11/14/2017 | | Results for this | | | | 10:48 PM | | procedure are in the | | | | PDT | | results section. | + +--------+ + + + | EXTRA BLUE TOP TUBE | STAT | 11/14/2017 | | Results for this | | | | 10:48 PM | | procedure are in the | | | | PDT | | results section. | + +--------+ + + + | CBC WITH | STAT | 11/14/2017 | | Results for this | | DIFFERENTIAL | | 10:48 PM | | procedure are in the | | | | PDT | | results section. | + +--------+ + + + | LIPASE | STAT | 11/14/2017 | | Results for this | | | | 10:48 PM | | procedure are in the | | | | PDT | | results section. | + +--------+ + + + | COMPREHENSIVE | STAT | 11/14/2017 | | Results for this | | METABOLIC PANEL | | 10:48 PM | | procedure are in the | | | | PDT | | results section. | + +--------+ + + + | ED INFORMATION | Routin | 11/14/2017 | | | | EXCHANGE | e | 9:35 PM | | | | | | PDT | | | + +--------+ + + + +---+--------+ | | | | | Proced | | | ure | | | Note - | | | Dustin, | | | Lab In | | | | | | Hlseve | | | n - | | | | | | 2017 | | | 9:36 | | | PM PDT | | | | | | Format | | | ting | | | of | | | this | | | note | | | might | | | be | | | differ | | | ent | | | from | | | the | | | origin | | | al.DUSTIN | | | E?NOTI | | | FICATI | | | ON?09/ | | | 26/201 | | | 8 | | | 21:32? | | | TALLWH | | | ITEMAN | | | , | | | REBECC | | | A?MRN: | | | | | | [id number] | | | [id number] | | | his | | | patien | | | t has | | | regist | | | ered | | | at the | | | | | | Provid | | | ence | | | [facility] | | l | | | Center | | | | | | Emerge | | | ncy | | | Depart | | | ment | | | For | | | more | | | inform | | | ation | | | visit: | | | | | | https: | | | //secu | | | re.dustin | | | ecarep | | | [email or web address] | | | m/roseanna | | | ent/b7 | | | [id number] | | | -[phone]- | | | [phone] | | | [phone] | | | [phone] | | | [phone] | | | Securi | | | ty | | | Events | | | Date | | | Locati | | | on | | | Type | | | Specif | | | ics | | | 12/16/ | | | 17 | | | 10:08 | | | PM [facility] | | [facility] | | | al | | | Elopem | | | ent | | | Patien | | | t | | | eloped | | | | | | before | | | | | | treatm | | | ent | | | comple | | | esteban. | | | Detail | | | s: | | | LWBS | | | Securi | | | ty | | | Events | | | (18 | | | Mo.) | | | Count | | | Elopem | | | ent 1 | | | Total | | | 1 ED | | | Care | | | Guidel | | | inesTh | | | ere | | | are | | | curren | | | tly no | | | ED | | | Care | | | Guidel | | | dao | | | in | | | [facility] | | | for | | | this | | | patien | | | t. | | | Please | | | check | | | your | | | facili | | | ty's | | | medica | | | l | | | record | | | s | | | system | | | .Recen | | | t | | | Emerge | | | ncy | | | Depart | | | ment | | | Visit | | | Summar | | | yAdmit | | | Date | | | Facili | | | ty | | | City | | | State | | | Type | | | Major | | | Type | | | Diagno | | | ses or | | | Chief | | | | | | Compla | | | int | | | Sep | | | 26, | | | 2018 | | | Provid | | | ence | | | [facility] | | [facility] | [place] | | | [place] | | | Emerge | | | ncy | | | Emerge | | | ncy | | | | | | Abdomi | | | nal | | | Pain | | | Sep | | | 16, | | | 2018 | | | [facility] [place] | | | Emerge | | | ncy | | | Emerge | | | ncy | | | | | | Genera | | | lized | | | abdomi | | | nal | | | pain | | | | | | Other | | | long | | | term | | | (curre | | | nt) | | | drug | | | therap | | | y | | | Functi | | | onal | | | dyspep | | | gillian | | | E.D. | | | Visit | | | Count | | | (12 | | | mo.)Fa | | | cility | | | | | | Visits | | | Low | | | Acuity | | | | | | Provid | | | ence | | | St. | | | [facility] | | | Medica | | | l | | | Center | | | 2 0 | | | [facility] y | | | Hospit | | | al 8 0 | | | Total | | | 10 0 | | | Note: | | | Visits | | | | | | indica | | | te | | | total | | | known | | | visits | | | . | | | Medica | | | id Low | | | | | | Acuity | | | Dx | | | are | | | the | | | number | | | of | | | primar | | | y | | | diagno | | | ses on | | | the | | | Medica | | | id's | | | Low | | | Acuity | | | dx | | | list. | | | | | | Recent | | | | | | Inpati | | | ent | | | Visit | | | Summar | | | yNo | | | record | | | ed | | | inpati | | | ent | | | visits | | | . PDMP | | | | | | Report | | | PDMP | | | query | | | found | | | no | | | report | | | .[!] | | | Patien | | | t is | | | on | | | Washin | | | gton | | | PRCPro | | | vider | | | PRC | | | Type | | | Phone | | | Servic | | | e | | | Dates | | | DR | | | SULY | | | | | | MARKHA | | | M, MD | | | Lock | | | In | | | (541) | | | [phone] | | | 77 | | | (541) | | | [phone] | | | 34 | | | Curren | | | t If | | | this | | | client | | | is | | | seen | | | in | | | your | | | facili | | | ty, | | | please | | | | | | notify | | | the | | | client | | | 's PCP | | | | | | and/or | | | refer | | | the | | | client | | | back | | | to | | | their | | | PCP | | | for | | | approp | | | riate | | | follow | | | -up | | | and | | | manage | | | ment | | | of | | | care. | | | If you | | | have | | | any | | | questi | | | ons or | | | | | | concer | | | ns | | | about | | | the | | | client | | | or | | | the | | | PRC | | | progra | | | m, | | | please | | | feel | | | free | | | to | | | contac | | | t us | | | at | | | [phone] | | | [phone] | | | [phone] | | | ext. | | | [phone] | | | or go | | | to the | | | PRC | | | websit | | | e at | | | http:/ | | | [email or web address]. | | | [email or web address] | | | a.gov/ | | | PRR/ | | | for | | | more | | | inform | | | ation. | | | | | | Additi | | | onal | | | Care | | | Provid | | | ersPro | | | vider | | | PRC | | | Type | | | Phone | | | Fax | | | Servic | | | e | | | Dates | | | QUAEMP | | | TS, | | | CONSTANTINO M | | | Family | | | | | | Medici | | | ne | | | ([phone]) | | | [phone] | | | 30 | | | [phone]) | | | [phone] | | | 70 Sep | | | 19, | | | 2018 - | | | | | | Curren | | | t | | | Criter | | | ia met | | | | | | PRCKno | | | wn | | | Aliase | | | sNo | | | known | | | aliase | | | s. The | | | above | | | | | | inform | | | ation | | | is | | | provid | | | ed for | | | the | | | sole | | | purpos | | | e of | | | patien | | | t | | | treatm | | | ent. | | | Use of | | | this | | | inform | | | ation | | | beyond | | | the | | | terms | | | of | | | Data | | | Sharin | | | g | | | Memora | | | ndum | | | of | | | Unders | | | tandin | | | g and | | | Licens | | | e | | | Agreem | | | ent is | | | | | | prohib | | | ited. | | | In | | | certai | | | n | | | cases | | | not | | | all | | | visits | | | may | | | be | | | repres | | | ented. | | | | | | Consul | | | t the | | | aforem | | | ention | | | ed | | | facili | | | ties | | | for | | | additi | | | onal | | | inform | | | ation. | | | ? | | | 2018 | | | [employer]le[employer] | | | tive | | | Medica | | | l | | | [employer] | | | logies | | | , [employer] | | | - | | | [place] | | | [place] | | | [place], | | | [place] - | | | [email or web address] | | | ollect | | | ivemed | | | icalte | | | [email or web address] | | | | +---+--------+ documented in this encounter Results Extra Blue Top Tube (11/14/2017 10:48 PM PDT) + +-------+ + + + | Component | Value | Ref Range | Performed | Pathologist | | | | | At | Signature | + +-------+ + + + | Extra Blue | Done | | [facility] | | | Top Tube | | | [facility] | | | | | | [facility] | | | | | | CENTER - | | | | | | LABORATORY | | + +-------+ + + + + + | Specimen | + + | Blood | + + + + + + + | Performing | Address | City/State/Zipcode | Phone Number | | Organization | | | | + + + + + | [facility] | [address] | [place] | [phone] | | [facility] | | [address] | | | - LABORATORY | | | | + + + + + Extra Gold Top Tube (11/14/2017 10:48 PM PDT) + +-------+ + + + | Component | Value | Ref Range | Performed | Pathologist | | | | | At | Signature | + +-------+ + + + | Extra Gold | Done | | [facility] | | | Top Tube | | | [facility] | | | | | | [facility] | | | | | | CENTER - | | | | | | LABORATORY | | + +-------+ + + + + + | Specimen | + + | Blood | + + + + + + + | Performing | Address | City/State/Zipcode | Phone Number | | Organization | | | | + + + + + | [facility] | [address] | [place] | [phone] | | [facility] | | [address] | | | - LABORATORY | | | | + + + + + Lipase (11/14/2017 10:48 PM PDT) + +-------+ + + + | Component | Value | Ref Range | Performed | Pathologist | | | | | At | Signature | + +-------+ + + + | Lipase | 25 | 0 - 60 U/L | [facility] | | | | | | [facility] | | | | | | MEDICAL | | | | | | CENTER - | | | | | | LABORATORY | | + +-------+ + + + + + | Specimen | + + | Blood | + + + + + + + | Performing | Address | City/State/Zipcode | Phone Number | | Organization | | | | + + + + + | [facility] | [address] | [place] | [phone] | | [facility] | | [address] | | | - LABORATORY | | | | + + + + + Comprehensive Metabolic Panel (11/14/2017 10:48 PM PDT) + + + + + + | Component | Value | Ref Range | Performed | Pathologist | | | | | At | Signature | + + + + + + | Na | 137 | 136 - 149 | [facility] | | | | | mmol/L | [facility] | | | | | | MEDICAL | | | | | | CENTER - | | | | | | LABORATORY | | + + + + + + | K | 3.5 | 3.5 - 5.1 | [facility] | | | | | mmol/L | [facility] | | | | | | MEDICAL | | | | | | CENTER - | | | | | | LABORATORY | | + + + + + + | Cl | 106 | 98 - 109 mmol/L | [facility] | | | | | | [facility] | | | | | | MEDICAL | | | | | | CENTER - | | | | | | LABORATORY | | + + + + + + | CO2 | 22 (L) | 24 - 31 mmol/L | [facility] | | | | | | [facility] | | | | | | MEDICAL | | | | | | CENTER - | | | | | | LABORATORY | | + + + + + + | Anion Gap | 9 | 3 - 16 mmol/L | [facility] | | | | | | [facility] | | | | | | MEDICAL | | | | | | CENTER - | | | | | | LABORATORY | | + + + + + + | Glucose | 90 | 70 - 109 mg/dL | [facility] | | | | | | [facility] | | | | | | MEDICAL | | | | | | CENTER - | | | | | | LABORATORY | | + + + + + + | BUN | 13 | 7 - 18 mg/dL | [facility] | | | | | | [facility] | | | | | | MEDICAL | | | | | | CENTER - | | | | | | LABORATORY | | + + + + + + | Creatinine | 0.69 | 0.60 - 1.30 | [facility] | | | | | mg/dL | [facility] | | | | | | MEDICAL | | | | | | CENTER - | | | | | | LABORATORY | | + + + + + + | eGFR if not | >60Comment: GLOMERULAR | >=60 | [facility] | | | | FILTRATION | mL/min/1.73m2 | [facility] | | | [facility]IC | RATE,ESTIMATED | | MEDICAL | | | | mL/min/1.94t5Gkps than | | CENTER - | | | | 60 Chronic kidney | | LABORATORY | | | | disease,if found over a | | | | | | 3-month period.Less than | | | | | | 15 Kidney failureFor | | | | | | | | | | | | Americans,multiply the | | | | | | calculated GFR by 1.21. | | | | | | | | | | + + + + + + | Calcium | 8.9 | 8.3 - 10.5 | [facility] | | | | | mg/dL | [facility] | | | | | | MEDICAL | | | | | | CENTER - | | | | | | LABORATORY | | + + + + + + | Albumin | 3.8 | 3.2 - 5.0 g/dL | [facility] | | | | | | [facility] | | | | | | MEDICAL | | | | | | CENTER - | | | | | | LABORATORY | | + + + + + + | Bilirubin | 0.3Comment: This is an | 0.1 - 1.5 mg/dL | [facility] | | | Total | appended report. These | | [facility] | | | | results have been | | MEDICAL | | | | appended to a previously | | CENTER - | | | | preliminary verified | | LABORATORY | | | | report. | | | | + + + + + + | Total | 7.0 | 6.0 - 7.8 g/dL | [facility] | | | Protein | | | [facility] | | | | | | MEDICAL | | | | | | CENTER - | | | | | | LABORATORY | | + + + + + + | AST | 17Comment: This is an | 10 - 42 U/L | [facility] | | | | appended report. These | | [facility] | | | | results have been | | MEDICAL | | | | appended to a previously | | CENTER - | | | | preliminary verified | | LABORATORY | | | | report. | | | | + + + + + + | ALT | 14Comment: This is an | 6 - 45 U/L | [facility] | | | | appended report. These | | [facility] | | | | results have been | | MEDICAL | | | | appended to a previously | | CENTER - | | | | preliminary verified | | LABORATORY | | | | report. | | | | + + + + + + | Alkaline | 124 (H)Comment: This is | 40 - 110 U/L | [facility] | | | Phosphatase | an appended report. | | [facility] | | | | These results have been | | MEDICAL | | | | appended to a previously | | CENTER - | | | | preliminary verified | | LABORATORY | | | | report. | | | | + + + + + + | Globulin | 3.2 | 2.1 - 3.8 g/dL | [facility] | | | | | | [facility] | | | | | | MEDICAL | | | | | | CENTER - | | | | | | LABORATORY | | + + + + + + | Albumin/Ai | 1.2 | 0.8 - 2.0 | [facility] | | | bulin Ratio | | | [facility] | | | | | | MEDICAL | | | | | | CENTER - | | | | | | LABORATORY | | + + + + + + | BUN/Creatin | 18.8 | | [facility] | | | ine Ratio | | | [facility] | | | | | | MEDICAL | | | | | | CENTER - | | | | | | LABORATORY | | + + + + + + + + | Specimen | + + | Blood | + + + + + + + | Performing | Address | City/State/Zipcode | Phone Number | | Organization | | | | + + + + + | [facility] | [address] | [place] | [phone] | | [facility] | | [address] | | | - LABORATORY | | | | + + + + + CBC with Differential (11/14/2017 10:48 PM PDT) + + + + + + | Component | Value | Ref Range | Performed | Pathologist | | | | | At | Signature | + + + + + + | WBC | 7.8 | 4.0 - 11.0 K/uL | [facility] | | | | | | [facility] | | | | | | MEDICAL | | | | | | CENTER - | | | | | | LABORATORY | | + + + + + + | RBC | 4.16 | 3.70 - 5.20 | [facility] | | | | | M/uL | [facility] | | | | | | MEDICAL | | | | | | CENTER - | | | | | | LABORATORY | | + + + + + + | Hemoglobin | 11.2 (L) | 11.5 - 16.0 | [facility] | | | | | g/dL | [facility] | | | | | | MEDICAL | | | | | | CENTER - | | | | | | LABORATORY | | + + + + + + | Hematocrit | 33.2 (L) | 34.0 - 47.0 % | [facility] | | | | | | [facility] | | | | | | MEDICAL | | | | | | CENTER - | | | | | | LABORATORY | | + + + + + + | MCV | 79.8 (L) | 83.0 - 101.0 fL | [facility] | | | | | | [facility] | | | | | | MEDICAL | | | | | | CENTER - | | | | | | LABORATORY | | + + + + + + | MCH | 26.9 (L) | 28.0 - 35.0 pg | [facility] | | | | | | [facility] | | | | | | MEDICAL | | | | | | CENTER - | | | | | | LABORATORY | | + + + + + + | MCHC | 33.7 | 32.0 - 36.0 | [facility] | | | | | g/dL | [facility] | | | | | | MEDICAL | | | | | | CENTER - | | | | | | LABORATORY | | + + + + + + | RDW-CV | 13.5 | <15.0 % | [facility] | | | | | | [facility] | | | [facility] | | MEDICAL | | | | | | CENTER - | | | | | | LABORATORY | | + + + + + + | RDW-SD | 38.9 | 35.1 - 46.3 fL | [facility] | | | | | | [facility] | | | | | | MEDICAL | | | | | | CENTER - | | | | | | LABORATORY | | + + + + + + | Platelet | 237 | 140 - 440 K/uL | [facility] | | | Count | | | [facility] | | | | | | MEDICAL | | | | | | CENTER - | | | | | | LABORATORY | | + + + + + + | MPV | 9.7 | 6.5 - 12.4 fL | [facility] | | | | | | [facility] | | | | | | MEDICAL | | | | | | CENTER - | | | | | | LABORATORY | | + + + + + + | % | 38.7 (L) | 45.0 - 82.0 % | [facility] | | | Neutrophils | | | [facility] | | | | | | MEDICAL | | | | | | CENTER - | | | | | | LABORATORY | | + + + + + + | % | 28.6 | 20.0 - 45.0 % | [facility] | | | Lymphocytes | | | [facility] | | | | | | MEDICAL | | | | | | CENTER - | | | | | | LABORATORY | | + + + + + + | % Monocytes | 5.9 | 4.0 - 12.0 % | [facility] | | | | | | [facility] | | | | | | MEDICAL | | | | | | CENTER - | | | | | | LABORATORY | | + + + + + + | % | 25.9 (H) | 0.0 - 5.0 % | [facility] | | | Eosinophils | | | [facility] | | | | | | MEDICAL | | | | | | CENTER - | | | | | | LABORATORY | | + + + + + + | % Basophils | 0.6 | 0.0 - 1.0 % | [facility] | | | | | | [facility] | | | | | | MEDICAL | | | | | | CENTER - | | | | | | LABORATORY | | + + + + + + | % Immature | 0.3 | 0.0 - 0.4 % | [facility] | | | Granulocyte | | | [facility] | | | s | | | MEDICAL | | | | | | CENTER - | | | | | | LABORATORY | | + + + + + + | Absolute | 3.00 | 1.80 - 8.50 | [facility] | | | Neutrophils | | K/uL | [facility] | | | | | | MEDICAL | | | | | | CENTER - | | | | | | LABORATORY | | + + + + + + | Absolute | 2.22 | 0.60 - 3.20 | [facility] | | | Lymphocytes | | K/uL | [facility] | | | | | | MEDICAL | | | | | | CENTER - | | | | | | LABORATORY | | + + + + + + | Absolute | 0.46 | 0.00 - 1.00 | [facility] | | | Monocytes | | K/uL | [facility] | | | | | | MEDICAL | | | | | | CENTER - | | | | | | LABORATORY | | + + + + + + | Absolute | 2.01 (H) | 0.00 - 0.40 | [facility] | | | Eosinophils | | K/uL | [facility] | | | | | | MEDICAL | | | | | | CENTER - | | | | | | LABORATORY | | + + + + + + | Absolute | 0.05 | 0.00 - 0.10 | [facility] | | | Basophils | | K/uL | [facility] | | | | | | MEDICAL | | | | | | CENTER - | | | | | | LABORATORY | | + + + + + + | Absolute | 0.02 | 0.00 - 0.03 | [facility] | | | Immature | | K/uL | [facility] | | | Granulocyte | | | MEDICAL | | | s | | | CENTER - | | | | | | LABORATORY | | + + + + + + | % nRBC | 0 | 0 - 2 per 100 | [facility] | | | | | WBC's | [facility] | | | | | | MEDICAL | | | | | | CENTER - | | | | | | LABORATORY | | + + + + + + | Absolute | 0.00 | 0.00 - 0.01 | [facility] | | | nRBC | | K/uL | [facility] | | | | | | MEDICAL | | | | | | CENTER - | | | | | | LABORATORY | | + + + + + + + + | Specimen | + + | Blood | + + + + + + + | Performing | Address | City/State/Zipcode | Phone Number | | Organization | | | | + + + + + | [facility] | [address] | [place] | [phone] | | [facility] | | [id number] | | | - LABORATORY | | | | + + + + + documented in this encounter Visit Diagnoses + + | Diagnosis | + + | Epigastric pain - Primary Abdominal pain, epigastric | + + | Diarrhea, unspecified type | + + documented in this encounter Administered Medications + + + +-------+------+------+ | Medication Order | MAR | Action | Dose | Rate | Site | | | Action | Date | | | | + + + +-------+------+------+ | dicyclomine (BENTYL) 10 mg | Dispense | 11/16/19 | 20 mg | | | | capsule (ER Prepack) 20 mg 20 | to Home | 18 12:32 | | | | | mg, Oral, EVERY 6 HOURS (4 times | | AM PDT | | | | | per day), First dose on Gale | | | | | | | 11/15/17 at 0020, For abdominal | | | | | | | pain., Patient Address: [id number] | | | | | | | [address];[place] [address], | | | | | | | | | | | | | + + + +-------+------+------+ +---+---+ | | | +---+---+ + +-------+ +-----+---+---+ | sucralfate (CARAFATE) tablet 1 | Given | 11/15/19 | 1 g | | | | g 1 g, Oral, ONCE, 11/14/17 | | 18 10:41 | | | | | at 2240, For 1 dose, ., | | PM PDT | | | | + +-------+ +-----+---+---+ +---+---+ | | | +---+---+ documented in this encounter
--- OUTSIDE RECORDS SUMMARY | ~2019-07-25 | XMS | Encounter Summary ---
Demographics + + + | Address | [address] | | | [place] [address] | + + + | Home Phone | | + + + | Preferred Language | Unknown | + + + | Marital Status | Single | + + + | Rastafari Affiliation | Unknown | + + + | Race | Unknown | + + + | Ethnic Group | Unknown | + + + Author + + + | Author | [facility] | | | and Leonelana | + + + | Organization | [facility] | | | and [...] Team Providers + +------+ + | Care Commercial Interior Designer Name | Role | Phone | + [...] | | | | CENTER [address] | [place], [place] | Diarrhea, | | 11/15/ | | [place], [place] | [address] | unspecified type | | 2018 | | [address] | | | | | | [phone] | | | +--------+ + + + [...] be sent through Care Everywhere.Diarrhea, Treat ing (Finnish)Epigastric Pain (Uncertain Cause) (Finnish)documented in this encounter Medications at Time of [...] A?MRN: | | | | | | [id number] | | | [id number] | | | his | | | [...] | | | ent/b7 | | | [id number] | | | -26b4- | | | [...] | | | St. | | | [place] | | | y | | | [...] | | | St. | | | [place] | | | y H. | | [...] | | | St. | | | [place] | | | y | | | [...] | | | ext. | | | [phone] | | | or go | | [...] [address] | [place] | [phone] | | [facility] | | [address] | | | - LABORATORY | | [...] + | [facility] | [address] | [place] | [phone] | | [facility] | | [address] | | | - LABORATORY | | [...] + | [facility] | [address] | [place] | [phone] | | [facility] | | [address] | | | - LABORATORY | | [...] mL/min/1.73m2 | [facility] | | | JORDANIAN | RATE,ESTIMATED | | MEDICAL | | | | mL/min/1.17i0Isik than | | CENTER - | | [...] + | [facility] | [address] | [place] | [phone] | | [facility] | | [address] | | | - LABORATORY | | [...] [address] | [place] | [phone] | | [facility] | | [address] | | | - LABORATORY | | [...] | | | | pain., Patient Address: [id number] | | | | | | [address];[place] [address], | | | | | | | [...]
--- OUTSIDE RECORDS SUMMARY | ~2019-07-25 | XMS | Encounter Summary ---
Demographics + + + | Address | [address] | | | [place] [address] | + + + | Home Phone | | + + + | Preferred Language | Unknown | + + + | Marital Status | Single | + + + | Synagogue Affiliation | Unknown | + + + | Race | Unknown | + + + | Ethnic Group | Unknown | + + + Author + + + | Author | [facility] | | | and [place]onel[place] | + + + | Organization | [facility] | | | and [...] Team Providers + +------+ + | Care Finish Cleaner Name | Role | Phone | + +------+ + | No, Physician | PCP | Unavailable | + +------+ + Reason for Visit + + + | Reason | Comments | + + + | Abdominal Pain | | | () | | + + + Encounter Details +--------+ + + + + | Date | Type | Department | Care Team | Description | +--------+ + + + + | 02/19/ | Emergency | [facility] | Mk Kahn, | Hyperemesis | | 2018 - | [facility] | MD [address] | dangidarum (Primary | | | | CENTER [address] | [place], [place] | Dx); Hypokalemia; | | 02/20/ | | [place], [place] | [address] | Dehydration | | 2017 | | [address] | | | | | | [phone] | | | +--------+ + + + + Social History + +-------+ +--------+------+ | Tobacco Use | Types | Packs/Day | Years | Date | | | | | Used | | + +-------+ +--------+------+ | Never Assessed | | | | | + +-------+ +--------+------+ + + + | Sex Assigned at [...] + | Blood Pressure | 105/66 | 02/20/2017 3:13 AM | | | | | PST | | + + + + + | Pulse | 63 | 02/20/2017 3:13 AM | | | | | PST | | + + + + + | Temperature | 36.6 C (97.8 F) | 02/19/2017 7:53 PM | | | | | PST | | + + + + + | Respiratory Rate | 16 | 02/19/2017 7:53 PM | | | | | PST | | + + + + + | Oxygen Saturation | 100% | 02/20/2017 3:13 AM | | | | | PST | | + + + + + | Inhaled Oxygen | - | - | | | Concentration | | | | + + + + + | Weight | 104.7 kg (230 lb | 02/19/2017 7:53 PM | | | | 13.2 oz) | PST | | + + + + + | Height | 175.3 cm (5' 9") | 02/19/2017 7:53 PM | | | | | PST | | + + + + + | Body Mass Index | 34.09 | 02/19/2017 7:53 PM | | | | | PST | | + + + + + documented in this encounter Discharge Instructions Instructions Mk Kahn MD - 02/20/2017Return if worsening or new concerning symptoms Take medication as prescribed AttachmentsThe following attachments cannot be sent through Care Everywhere.Hypokalemia, Di linnette Instructions ([place])Severe Morning Sickness (Hyperemesis Gravidarum) ([place])Yaima valdivia (Adult) ([place])documented in this encounter Medications at Time of Discharge + + + +---------+ + + | Medication | Sig | Dispensed | Refills | Start | End Date | | | | | | Date | | + + + +---------+ + + | ondansetron | Take 1 tablet by | 24 | 0 | 02/20/19 | | | (ZOFRAN ODT) 4 mg | mouth every 8 hours | tablet | | 18 | 8 | | disintegrating | as needed for Nausea | | | | | | tablet | for up to 4 days. | | | | | + + + +---------+ + + | potassium chloride | Take 15 mLs by mouth | 240 mL | 0 | 02/20/19 | | | 20 mEq/15 mL liquid | Daily. | | | 18 | 8 | + + + +---------+ + + documented as of this encounter Plan of Treatment + +------+--------+ + + | Name | Type | Priori | Associated Diagnoses | Date/Time | | | | ty | | | + +------+--------+ + + | ED INFORMATION | [facility] | Routin | | 02/19/2017 7:27 PM | | EXCHANGE | | e | | PST | + +------+--------+ + + documented as of this encounter Procedures + +--------+ + + + | Procedure Name | Priori | Date/Time | Associated Diagnosis | Comments | | | ty | | | | + +--------+ + + + | BASIC METABOLIC | STAT | 02/20/2017 | | Results for this | | PANEL | | 3:13 AM | | procedure are in the | | | | PST | | results section. | + +--------+ + + + | URINALYSIS WITH | STAT | 02/19/2017 | | Results for this | | MICROSCOPIC | | 10:16 PM | | procedure are in the | | | | PST | | results section. | + +--------+ + + + | EXTRA LAVENDER TOP | Routin | 02/19/2017 | | Results for this | | TUBE | e | 9:35 PM | | procedure are in the | | | | PST | | results section. | + +--------+ + + + | EXTRA GREEN TOP TUBE | Routin | 02/19/2017 | | Results for this | | | e | 9:35 PM | | procedure are in the | | | | PST | | results section. | + +--------+ + + + | CBC WITH | STAT | 02/19/2017 | | Results for this | | DIFFERENTIAL | | 9:35 PM | | procedure are in the | | | | PST | | results section. | + +--------+ + + + | COMPREHENSIVE | STAT | 02/19/2017 | | Results for this | | METABOLIC PANEL | | 9:35 PM | | procedure are in the | | | | PST | | results section. | + +--------+ + + + | ED INFORMATION | Routin | 02/19/2017 | | | | EXCHANGE | e | 7:27 PM | | | | | | PST | | | + +--------+ + + + +---+--------+ | | | | | Proced | | | ure | | | Note - | | | Dustin, | | | Lab In | | | | | | Hlseve | | | n - | | | 02/19/ | | | 2018 | | | 7:28 | | | PM PST | | | | | | Format [...] | | | FICATI | | | ON?/ | | | / | | | 8 | | | 19:23? | | | TALLWH | | | ITEMAN | | | , | | | REBECC | | | A?MRN: | | | | | | [id number] | | | [id number] | | | his | | | [...] | | | [id number] | | | [id number] | | | [id number] | | | [...] | | | St. | | | [place] [facility] | | | y | | | [...] | | | int | | | Kobi 1, | | | 2018 | | | Provid | | | ence | | | [facility] | | [facility] | [place] | | | [place] | | | Emerge | | | ncy | | | Emerge | | | ncy | | | 10 | | | wks | | | pregna | | | nt- | | | abdomi | | | nal | | | pain | | | Dec | | | 24, | | | 2017 | | | [facility] | | | [facility] | | | [place] | | | [place] | | | Emerge | | | ncy | | | Emerge | | | ncy | | | | | | Vomiti | | | ng of | | | pregna | | | ncy, | | | unspec | | | ified | | | | | | Other | | | long | | | term | | | (curre | | | nt) | | | drug | | | therap | | | y | | | Endocr | | | ine, | | | nutrit | | | ional | | | and | | | metabo | | | lic | | | diseas | | | es | | | compli | | | cating | | | | | | pregna | | | ncy, | | | first | | | trimes | | | ter | | | | | | Hypoka | | | lemia | | | 8 | | | weeks | | | gestat | | | ion of | | | | | | pregna | | | ncy | | | | | | Acquir | | | ed | | | absenc | | | e of | | | other | | | specif | | | ied | | | parts | | | of | | | digest | | | wong | | | tract | | | Dec | | | 18, | | | 2017 | | | [facility] | [facility] | | | [facility] | | | [place] | | | [place] | | | Emerge | | | ncy | | | Emerge | | | ncy | | | | | | Acquir | | | ed | | | absenc | | | e of | | | other | | | specif | | | ied | | | parts | | | of | | | digest | | | wong | | | tract | | | 10 | | | weeks | | | gestat | | | ion of | | | | | | pregna | | | ncy | | | | | | Hemorr | | | jennifer | | | in | | | early | | | pregna | | | ncy, | | | unspec | | | ified | | | | | | Hypere | | | mesis | | | gravid | | | arum | | | with | | | metabo | | | lic | | | distur | | | bance | | | Dec | | | 16, | | | 2017 | | | [facility] | | | [facility] | | | [place] | | | [place] | | | Emerge | | | ncy | | | Emerge | | | ncy | | | | | | Unspec | | | ified | | | abdomi | | | nal | | | pain | | | | | | Vomiti | | | ng, | | | unspec | | | ified | | | | | | Proced | | | ure | | | and | | | treatm | | | ent | | | not | | | barbara | | | d out | | | due to | | | | | | patien | | | t | | | leavin | | | g | | | prior | | | to | | | being | | | seen | | | by | | | health | | | care | | | provid | | | er | | | Dec | | | 13, | | | 2017 | | | [facility] | | | [facility] | | | [place] | | | [place] | | | Emerge | | | ncy | | | Emerge | | | ncy | | | Less | | | than 8 | | | weeks | | | | | | gestat | | | ion of | | | | | | pregna | | | ncy | | | Mild | | | hypere | | | mesis | | | gravid | | | arum | | | | | | Acquir | | | ed | | | absenc | | | e of | | | other | | | specif | | | ied | | | parts | | | of | | | digest | | | wong | | | tract | | | Dec | | | 6, | | | 2017 | | | [facility] | | | [facility] | | | [place] | [place] | | | Emerge | | | ncy | | | Emerge | | | ncy | | | | | | Acquir | | | ed | | | absenc | | | e of | | | other | | | specif | | | ied | | | parts | | | of | | | digest | | | wong | | | tract | | | | | | Mild | | | hypere | | | mesis | | | gravid | | | arum | | | Less | | | than | | | 8 | | | weeks | | | gestat | | | ion of | | | | | | pregna | | | ncy | | | | | | Vomiti | | | ng of | | | pregna | | | ncy, | | | unspec | | | ified | | | Nov | | | 4, | | | 2017 | | | [facility] | | | [facility] | | | [place] | | | [place] | | | Emerge | | | ncy | | | Emerge | | | ncy | | | | | | Tachyc | | | ardia, | | | | | | unspec | | | ified | | | | | | Anxiet | | | y | | | disord | | | er, | | | unspec | | | ified | | | E.D. | | | [...] | | | Center | | | 1 0 | | | [facility] | | | y | | | Hospit | | | al 8 0 | | | Total | | | 9 0 | | | Note: | | [...] | | | report | | | .Care | | | Provid | | | ersPro | | | vider | | | PRC | | | Type | | | Phone | | | Fax | | | Servic | | | e | | | Dates | | | Levi | | | Quaemp | | | ts, | | | MD, MD | | | | | | Primar | | | y Care | | | (541) | | | | | | [phone] | | | 30 | | | (541) | | | 215-19 | | | 72 | | | Curren | | | t | | | Criter | | | ia met | | | 4 | | | visits | | | in | | | 60Know | | | n | | | Aliase | | | [...] | +---+--------+ documented in this encounter Results Basic Metabolic Panel (02/20/2017 3:13 AM PST) + + + + + + | Component | Value | Ref Range | Performed | Pathologist | | | | | At | Signature | + + + + + + | Na | 134 (L) | 136 - 149 | [facility] | | | | | mmol/L | [facility] | [facility] | [facility] | | | | | | [facility] - | | | | | | LABORATORY | | + + + + + + | K | 3.1 (L) | 3.5 - 5.1 | [facility] | | | | | mmol/L | [facility] | | | | | | [facility] | | | | | | CENTER - | | | | | | LABORATORY | | + + + + + + | Cl | 112 (H) | 98 - 109 mmol/L | [facility] | | | | | | [facility] | [facility] | [facility] | | | | | | CENTER - | | | | | | LABORATORY | | + + + + + + | CO2 | 15 (L) | 24 - 31 mmol/L | [facility] | | | | | | [facility] | | | | | | [facility] | | | | | | C[facility] - | | | | | | LABORATORY | | + + + + + + | Anion Gap | 7 | 3 - 16 mmol/L | [facility] | | | | | | [facility] | | | [facility] | | [facility] | | | | | | C[facility] - | | | | | | LABORATORY | | + + + + + + | Glucose | 76 | 70 - 109 mg/dL | [facility] | | | | | | [facility] | [facility] | | | | | | [facility] - | | | | | | LABORATORY | | + + + + + + | BUN | 4 (L) | 7 - 18 mg/dL | [facility] | | | | | | [facility] | | | | | | [facility] | | | | | | C[facility] - | | | | | | LABORATORY | | + + + + + + | Creatinine | 0.54 (L) | 0.60 - 1.30 | [facility] | | | | | mg/dL | [facility] | | | | | | [facility] | | | | | | CENTER - | | | | | | LABORATORY | | + + + + + + | eGFR if not | >60Comment: GLOMERULAR | >=60 | [facility] | | | | FILTRATION | mL/min/1.73m2 | [facility] | | | [place] | RATE,ESTIMATED | | MEDICAL | | | | mL/min/1.80y6Xsze than | | CENTER - | | [...] + + + + | Calcium | 8.1 (L) | 8.3 - 10.5 | [facility] | | | | | mg/dL | [facility] | | | | | | MEDICAL | | | | | | CENTER - | | | | | | LABORATORY | | + + + + + + | BUN/Creatin | 7.4 | | [facility] | | | ine Ratio | | | [facility] | | [...] + + | [facility] | [address] | [place] | [phone] | | [facility] | | [address] | | | - LABORATORY | | | | + + + + + Urinalysis With Microscopic (02/19/2017 10:16 PM PST) + + + + + + | Component | Value | Ref Range | Performed | Pathologist | | | | | At | Signature | + + + + + + | Color, | Nirali (A) | Light Yellow, | [facility] | | | Urine | | Yellow, Straw | [facility] | | | | | | [facility] | | | | | | CENTER - | | | | | | LABORATORY | | + + + + + + | Clarity | Cloudy (A) | Clear | [facility] | | | | | | [facility] | | | | | | [facility] | | | | | | CENTER - | | | | | | LABORATORY | | + + + + + + | pH, Urine | 6.0 | 5.0 - 8.0 | [facility] | | | | | | [facility] | | | | | | MEDICAL | | | | | | CENTER - | | | | | | LABORATORY | | + + + + + + | Specific | 1.029 | 1.001 - 1.030 | [facility] | | | Hamel, | | | [facility] | | | Urine | | | MEDICAL | | | | | | CENTER - | | | | | | LABORATORY | | + + + + + + | Protein, | 100 mg/dL (A) | Negative | [facility] | | | Urine | | | [facility] | | | | | | MEDICAL | | | | | | CENTER - | | | | | | LABORATORY | | + + + + + + | Blood, | Negative | Negative | [facility] | | | Urine | | | [facility] | | | | | | MEDICAL | | | | | | CENTER - | | | | | | LABORATORY | | + + + + + + | Glucose, | Negative | Negative | [facility] | | | Urine | | | [facility] | | | | | | MEDICAL | | | | | | CENTER - | | | | | | LABORATORY | | + + + + + + | Ketones, | 80 mg/dL (A) | Negative | [facility] | | | Urine | | | [facility] | | | | | | MEDICAL | | | | | | CENTER - | | | | | | LABORATORY | | + + + + + + | Bilirubin, | Negative | Negative | [facility] | | | Urine | | | [facility] | | | | | | MEDICAL | | | | | | CENTER - | | | | | | LABORATORY | | + + + + + + | Nitrite, | Negative | Negative | [facility] | | | Urine | | | [facility] | | | | | | MEDICAL | | | | | | CENTER - | | | | | | LABORATORY | | + + + + + + | Leukocyte | Moderate (A) | Negative | [facility] | | | Esterase, | | | [facility] | | | Urine | | | MEDICAL | | | | | | CENTER - | | | | | | LABORATORY | | + + + + + + | Urobilinoge | 2.0 mg/dL (A) | 0.2 mg/dL, 1.0 | [facility] | | | n, Urine | | mg/dL, Negative | [facility] | | | | | | MEDICAL | | | | | | CENTER - | | | | | | LABORATORY | | + + + + + + | White Blood | 10-15 (A) | 0 - 2 /HPF | [facility] | | | Cells, | | | [facility] | | | Urine | | | MEDICAL | | | | | | CENTER - | | | | | | LABORATORY | | + + + + + + | Red Blood | 5-10 (A) | 0 - 2 /HPF | [facility] | | | Cells, | | | [facility] | | | Urine | | | MEDICAL | | | | | | CENTER - | | | | | | LABORATORY | | + + + + + + | Squamous | >100 (A) | 0 - 2 /LPF | [facility] | | | Epithelial | | | [facility] | | | Cells, | | | MEDICAL | | | Urine | | | CENTER - | | | | | | LABORATORY | | + + + + + + | Bacteria, | 2+ (A) | Negative /HPF | [facility] | | | Urine | | | [facility] | | | | | | MEDICAL | | | | | | CENTER - | | | | | | LABORATORY | | + + + + + + | Mucus, | Present (A) | Negative /LPF | [facility] | | | Urine | | | [facility] | | | | | | MEDICAL | | | | | | CENTER - | | | | | | LABORATORY | | + + + + + + | Hyaline | 10-15 (A) | 0 - 2 /LPF | [facility] | | | Casts, | | | [facility] | | | Urine | | | MEDICAL | | | | | | CENTER - | | | | | | LABORATORY | | + + + + + + + + | Specimen | + + | Urine | + + + + + + + | Performing | Address | City/State/Zipcode | Phone Number | | Organization | | | | + + + + + | [facility] | [address] | [place] | [phone] | | [facility] | | [address] | | | - LABORATORY | | | | + + + + + Extra Lavender Top Tube (02/19/2017 9:35 PM PST) + +-------+ + + + | Component | Value | Ref Range | Performed | Pathologist | | | | | At | Signature | + +-------+ + + + | Extra | Done | | [facility] | | | Lavender | | | [facility] | | | Top Tube | | | MEDICAL | | | [...] + + | [facility] | [address] | [place] | [phone] | | [facility] | | [address] | | | - LABORATORY | | | | + + + + + Extra Green Top Tube (02/19/2017 9:35 PM PST) + +-------+ + + + | Component | Value | Ref Range | Performed | Pathologist | | | | | At | Signature | + +-------+ + + + | Extra Green | Done | | [facility] | | | Top Tube | | | [facility] | | [...] [address] | [place] | [phone] | | [facility] | | [address] | | | - LABORATORY | | | | + + + + + Comprehensive Metabolic Panel (02/19/2017 9:35 PM PST) + + + + + + | Component | Value | Ref Range | Performed | Pathologist | | | | | At | Signature | + + + + + + | Na | 134 (L) | 136 - 149 | [facility] | | | | | mmol/L | [facility] | | | | | | MEDICAL | | | | | | CENTER - | | | | | | LABORATORY | | + + + + + + | K | 2.5 (LL)Comment: | 3.5 - 5.1 | [facility] | | | | Critical Result called | mmol/L | [facility] | | | | to and read back by Erica | | MEDICAL | | | | Lele on 02/19/2017 at | | CENTER - | | | | 22:09 by Marcellus Hernandez. | | LABORATORY | | | | | | | | + + + + + + | Cl | 105 | 98 - 109 mmol/L | [facility] | | | | | | [facility] | | | | | | MEDICAL | | | | | | CENTER - | | | | | | LABORATORY | | + + + + + + | CO2 | 15 (L) | 24 - 31 mmol/L | [facility] | | | | | | [facility] | | | | | | MEDICAL | | | | | | CENTER - | | | | | | LABORATORY | | + + + + + + | Anion Gap | 14 | 3 - 16 mmol/L | [facility] | | | | | | [facility] | | | | | | MEDICAL | | | | | | CENTER - | | | | | | LABORATORY | | + + + + + + | Glucose | 84 | 70 - 109 mg/dL | [facility] | | | | | | [facility] | | | | | | MEDICAL | | | | | | CENTER - | | | | | | LABORATORY | | + + + + + + | BUN | 4 (L) | 7 - 18 mg/dL | [facility] | | | | | | [facility] | | | | | | MEDICAL | | | | | | CENTER - | | | | | | LABORATORY | | + + + + + + | Creatinine | 0.67 | 0.60 - 1.30 | [facility] | | | | | mg/dL | [facility] | | | | | | MEDICAL | | | | | | CENTER - | | | | | | LABORATORY | | + + + + + + | eGFR if not | >60Comment: GLOMERULAR | >=60 | [facility] | | | | FILTRATION | mL/min/1.73m2 | [facility] | | | [place] | RATE,ESTIMATED | | MEDICAL | | | | mL/min/1.19h3Tkrd than | | CENTER - | | [...] + + + + | Calcium | 9.5 | 8.3 - 10.5 | [facility] | | | | | mg/dL | [facility] | | | | | | MEDICAL | | | | | | CENTER - | | | | | | LABORATORY | | + + + + + + | Albumin | 4.3 | 3.2 - 5.0 g/dL | [facility] | | | | | | [facility] | | | | | | MEDICAL | | | | | | CENTER - | | | | | | LABORATORY | | + + + + + + | Bilirubin | 1.4 | 0.1 - 1.5 mg/dL | [facility] | | | Total | | | [facility] | | | | | | MEDICAL | | | | | | CENTER - | | | | | | LABORATORY | | + + + + + + | Total | 8.3 (H) | 6.0 - 7.8 g/dL | [facility] | | | Protein | | | [facility] | | | | | | MEDICAL | | | | | | CENTER - | | | | | | LABORATORY | | + + + + + + | AST | 27 | 10 - 42 U/L | [facility] | | | | | | [facility] | | | | | | MEDICAL | | | | | | CENTER - | | | | | | LABORATORY | | + + + + + + | ALT | 49 (H) | 6 - 45 U/L | [facility] | | | | | | [facility] | | | | | | MEDICAL | | | | | | CENTER - | | | | | | LABORATORY | | + + + + + + | Alkaline | 86 | 40 - 110 U/L | [facility] | | | Phosphatase | | | [facility] | | | | | | MEDICAL | | | | | | CENTER - | | | | | | LABORATORY | | + + + + + + | Globulin | 4.0 (H) | 2.1 - 3.8 g/dL | [facility] | | | | | | [facility] | | | | | | MEDICAL | | | | | | CENTER - | | | | | | LABORATORY | | + + + + + + | Albumin/Ia | 1.1 | 0.8 - 2.0 | [facility] | | | bulin Ratio | | | [facility] | | | | | | MEDICAL | | | | | | CENTER - | | | | | | LABORATORY | | + + + + + + | BUN/Creatin | 6.0 | | [facility] | | | ine [...] + + | [facility] | [address] | [place] | [phone] | | [facility] | | [address] | | | - LABORATORY | | | | + + + + + CBC with Differential (02/19/2017 9:35 PM PST) + + + + + + | Component | Value | Ref Range | Performed | Pathologist | | | | | At | Signature | + + + + + + | WBC | 6.4 | 4.0 - 11.0 K/uL | [facility] | | | | | | [facility] | | | | | | MEDICAL | | | | | | CENTER - | | | | | | LABORATORY | | + + + + + + | RBC | 5.37 (H) | 3.70 - 5.20 | [facility] | | | | | M/uL | [facility] | | | | | | MEDICAL | | | | | | CENTER - | | | | | | LABORATORY | | + + + + + + | Hemoglobin | 14.5 | 11.5 - 16.0 | [facility] | | | | | g/dL | [facility] | | | | | | MEDICAL | | | | | | CENTER - | | | | | | LABORATORY | | + + + + + + | Hematocrit | 41.4 | 34.0 - 47.0 % | [facility] | | | | | | [facility] | | | | | | MEDICAL | | | | | | CENTER - | | | | | | LABORATORY | | + + + + + + | MCV | 77.1 (L) | 83.0 - 101.0 fL | [facility] | | | | | | [facility] | | | | | | MEDICAL | | | | | | CENTER - | | | | | | LABORATORY | | + + + + + + | MCH | 27.0 (L) | 28.0 - 35.0 pg | [facility] | | | | | | [facility] | | | | | | MEDICAL | | | | | | CENTER - | | | | | | LABORATORY | | + + + + + + | MCHC | 35.0 | 32.0 - 36.0 | [facility] | | | | | g/dL | [facility] | | | | | | MEDICAL | | | | | | CENTER - | | | | | | LABORATORY | | + + + + + + | RDW-CV | 15.3 (H) | <15.0 % | [facility] | | | | | | [facility] | | | | | | MEDICAL | | | | | | CENTER - | | | | | | LABORATORY | | + + + + + + | Platelet | 165 | 140 - 440 K/uL | [facility] | | | Count | | | [facility] | | | | | | MEDICAL | | | | | | CENTER - | | | | | | LABORATORY | | + + + + + + | MPV | 8.8 | fL | [facility] | | | | | | [facility] | | | | | | MEDICAL | | | | | | CENTER - | | | | | | LABORATORY | | + + + + + + | % | 66.9 | 45.0 - 82.0 % | [facility] | | | Neutrophils | | | [facility] | | | | | | MEDICAL | | | | | | CENTER - | | | | | | LABORATORY | | + + + + + + | % | 23.1 | 20.0 - 45.0 % | [facility] | | | Lymphocytes | | | [facility] | | | | | | [facility] | | | | | | CENTER - | | | | | | LABORATORY | | + + + + + + | % Monocytes | 8.3 | 4.0 - 12.0 % | [facility] | | | | | | [facility] | | | | | | [facility] | | | | | | CENTER - | | | | | | LABORATORY | | + + + + + + | % | 1.1 | 0.0 - 5.0 % | [facility] [...] + + + + | Absolute | 4.30 | 1.80 - 8.50 | [facility] | | | Neutrophils | | K/uL | [facility] | | | | | | [facility]ICAL | | | | | | CENTER - | | | | | | LABORATORY | | + + + + + + | Absolute | 1.50 | 0.60 - 3.20 | [facility] | | | Lymphocytes | | K/uL | [facility] | | | | | | [facility] | | | | | | CENTER - | | | | | | LABORATORY | | + + + + + + | Absolute | 0.50 | 0.00 - 1.00 | [facility] | | | Monocytes | | K/uL | [facility] | | | | | | MEDICAL | | | | | | CENTER - | | | | | | LABORATORY | | + + + + + + | Absolute | 0.10 | 0.00 - 0.40 | [facility] | | | Eosinophils | | K/uL | [facility] | | | | | | MEDICAL | | | | | | CENTER - | | | | | | LABORATORY | | + + + + + + | Absolute | 0.00 | 0.00 - 0.10 | [facility] | | | Basophils | | K/uL | [facility] | [...] [address] | [place] | [phone] | | [facility] | | [id number] | | | - LABORATORY | | | | + + + + + documented in this encounter Visit Diagnoses + + | Diagnosis | + + | Hyperemesis gravidarum - Primary Mild hyperemesis gravidarum, unspecified as to | | episode of care | + + | Hypokalemia Hypopotassemia | + + | Dehydration | + + documented in this encounter Administered Medications + + + +------+------+------+ | Medication Order | MAR | Action | Dose | Rate | Site | | | Action | Date | | | | + + + +------+------+------+ | ondansetron (ZOFRAN ODT) | Dispense | 02/20/19 | 4 mg | | | | disintegrating tablet (ED | to Home | 18 3:56 | | | | | homepack) 4 mg 4 mg, Oral, ONCE, | | AM PST | | | | | 02/20/17 at 0345, For 1 dose, | | | | | | | Dissolve on tongue or swallow 1 | | | | | | | or 2 tablets every 8 hours prn | | | | | | | nausea or vomiting Dispense for | | | | | | | home use., | | | | | | + + + +------+------+------+ +---+---+ | | | +---+---+ + +-------+ +------+---+---+ | ondansetron (ZOFRAN) injection | Given | 02/19/19 | 4 mg | | | | 4 mg 4 mg, Intravenous, EVERY 1 | | 18 9:40 | | | | | HOUR PRN, Nausea, Vomiting, | | PM PST | | | | | Starting 02/19/17 at 2119, For | | | | | | | 2 doses | | | | | | + +-------+ +------+---+---+ +---+---+ | | | +---+---+ + +---------+ +--------+-------+---+ | potassium chloride 40 mEq in | New Bag | 02/19/19 | 40 mEq | 130 | | | sodium chloride 0.45% 500 mL IVPB | | 18 10:38 | | mL/hr | | | 40 mEq, Intravenous, Administer | | PM PST | | | | | over 4 Hours, ONCE, 02/19/17 | | | | | | | at 2215, For 1 dose | | | | | | + +---------+ +--------+-------+---+ +---+---+ | | | +---+---+ + +---------+ +--------+-------+---+ | sodium chloride 0.9% (NS) bolus | New Bag | 02/19/19 | 1,000 | 2000 | | | 1,000 mL 1,000 mL, Intravenous, | | 18 9:40 | mLs | mL/hr | | | Administer over 30 Minutes, | | PM PST | | | | | ONCE, 02/19/17 at 2125, For 1 | | | | | | | dose | | | | | | + +---------+ +--------+-------+---+ +---+---+ | | | +---+---+ + +---------+ +--------+-------+---+ | sodium chloride 0.9% (NS) bolus | New Bag | 02/19/19 | 1,000 | 2000 | | | 1,000 mL 1,000 mL, Intravenous, | | 18 11:15 | mLs | mL/hr | | | Administer over 30 Minutes, | | PM PST | | | | | ONCE, [facility] 02/19/17 at 2240, For 1 | | | | | | | dose | | | | | | + +---------+ +--------+-------+---+ +---+---+ | | | +---+---+ documented in this encounter
--- OUTSIDE RECORDS SUMMARY | ~2019-07-25 | XMS | Encounter Summary ---
Demographics + + + | Address | [address] | | | [place] [address] | + + + | Home Phone | | + + + | Preferred Language | Unknown | + + + | Marital Status | Single | + + + | Latter Day Affiliation | Unknown | + + + | Race | Unknown | + + + | Ethnic Group | Unknown | + + + Author + + + | Author | [facility] | | | and Leonelana | + + + | Organization | [facility] | | | and [...] Team Providers + +------+ + | Care Skilled Nursing Facilities Professional Name | Role | Phone | + [...] | | | | CENTER [address] | [place], [place] | Dx); Hypokalemia; | | 02/20/ | | [place], [place] | [address] | Dehydration | | 2017 | | [address] | | | | | | [phone] | | | +--------+ + + + [...] sent through Care Everywhere.Hypokalemia, Di linnette Instructions (Brazilian)Severe Morning Sickness (Hyperemesis Gravidarum) (Brazilian)Yaima valdivia (Adult) (Brazilian)documented in this encounter Medications at Time of [...] A?MRN: | | | | | | [id number] | | | [id number] | | | his | | | [...] | | | ent/b7 | | | [id number] | | | -[id number]- | | | [...] | | | St. | | | [place] | | | y | | | [...] | | | St. | | | [place] | | | y H. | | [...] | | | St. | | | [place] | | | y H. | | [...] | | | St. | | | [place] | | | y H. | | [...] | | | St. | | | [place] | | | y H. | | [...] | | | St. | | | [place] | | | y H. | | [...] | | | St. | | | [place] | | | y H. | | [...] | | | St. | | | [place] | | | y | | | [...] | | FILTRATION | mL/min/1.73m2 | [facility] | | | IRAQI | RATE,ESTIMATED | | MEDICAL | | | | mL/min/1.51i6Ddbb than | | CENTER - | | [...] [address] | [place] | [phone] | | [facility] | | [address] | | | - LABORATORY | | [...] - 1.030 | [facility] | | | [place], | | | [facility] | | [...] [address] | [place] | [phone] | | [facility] | | [address] | | | - LABORATORY | | [...] [address] | [place] | [phone] | | [facility] | | [address] | | | - LABORATORY | | [...] [address] | [place] | [phone] | | [facility] | | [address] | | | - LABORATORY | | [...] (L) | 7 - 18 mg/dL | [facility] | | | | | | [facility] | | | | | | MEDICAL | | | | | | CENTER - | | | | | | LABORATORY | | + + + + + + | Creatinine | 0.67 | 0.60 - 1.30 | [facility] | | | | | mg/dL | [facility] | | | | | | MEDICAL | | | | | | CENTER - | | | | | | LABORATORY | | + + + + + + | eGFR if not | >60Comment: GLOMERULAR | >=60 | [facility] | | | | FILTRATION | mL/min/1.73m2 | [facility] | | | IRAQI | RATE,ESTIMATED | | MEDICAL | | | | mL/min/1.74d7Htca than | | CENTER - | | [...] + + + + | Albumin/Ai | 1.1 | 0.8 - 2.0 | [...] [address] | [place] | [phone] | | [facility] | | [address] | | | - LABORATORY | | [...] | | Eosinophils | | | [facility] | | | | | | MEDICAL [...] [address] | [place] | [phone] | | [facility] | | [address] | | | - LABORATORY | | [...] PST | | | | | ONCE, [facility] 02/19/17 at 2240, For 1 | | | | | | | dose | | | | | | + +---------+ +--------+-------+---+ +---+---+ | | | +---+---+ documented in this encounter
--- OUTSIDE RECORDS SUMMARY | ~2019-07-25 | XMS | Encounter Summary ---
Demographics + + + | Address | [address] | | | [place] [address] | + + + | Home Phone | | + + + | Preferred Language | Unknown | + + + | Marital Status | Single | + + + | Orthodox Affiliation | Unknown | + + + | Race | Unknown | + + + | Ethnic Group | Unknown | + + + Author + + + | Author | [facility] | | | and Leonelana | + + + | Organization | [facility] | | | and Leonelana [...] Team Providers + +------+ + | Care Chinese Teacher Name | Role | Phone | + +------+ + PCP | Unavailable | + +------+ + Encounter Details +--------+ + + + + | Date | Type | Department | Care Team | Description | +--------+ + + + + | 06/16/ | Hospital | [facility] | [place], | | | 1993 | Encounter | [facility] | [address] | | | | | GENERIC CONV DEPT 6 | [place] | | | | | [place], | [address] | | | | | [place] [address] | | | | | | [phone] | | | +--------+ + + + [...] as of this encounter Plan of Treatment Not on filedocumented as of this encounter Visit Diagnoses Not on filedocumented in this encounter"
--- OUTSIDE RECORDS SUMMARY | ~2019-07-25 | XMS | Encounter Summary ---
Demographics + + + | Address | [address] | | | [place] [address] | + + + | Home Phone | | + + + | Preferred Language | Unknown | + + + | Marital Status | Single | + + + | Presybeterian Affiliation | Unknown | + + + | Race | Unknown | + + + | Ethnic Group | Unknown | + + + Author + + + | Author | [facility] | | | and Leonelana | + + + | Organization | [facility] | | | and Leonelana [...] Team Providers + +------+ + | Care Bilingual Research Interviewer Name | Role | Phone | + +------+ + | Shantel Rodrigues | PCP | | + +------+ + Reason for Visit + + + | Reason | Comments | + + + | New Patient | dizziness and pain in both ears | + + + Evaluate & Treat (Routine) + +--------+ + + + + | Status | Reason | Specialty | Diagnoses / | Referred By | Referred To | | | | | Procedures | Contact | Contact | + +--------+ + + + + | Authorized | | Otolaryngolog | Diagnoses | Ravi, | Dontrell Matos | | | | y | Dizziness | CHARL[place] Funes | [address] | | | | | and | [address] | [address] | | | | | giddiness | [address] | [address] | | | | | | [place], | [place], | | | | | | [place] [address] | [place] [address] | | | | | | Phone: | Phone: | | | | | | [phone] | [phone] | | | | | | Fax: | Fax: | | | | | | [phone] | [phone] | + +--------+ + + + + Encounter Details +--------+---------+ + + + | Date | Type | Department | Care Team | Description | +--------+---------+ + + + | 04/09/ | Office | [facility] | Dontrell Matos MD | Eczema of external | | 2020 | Visit | OTOLARYNGOLOGY [address] | [address] [place] | ear, bilateral | | | | [address] | [address], | (Primary Dx); | | | | [place], [place] | [place] [address] | Central nervous | | | | [address] | [phone] | system origin | | | | [phone] | | vertigo | +--------+---------+ + + + Social History + +-------+ [...] + + + | Blood Pressure | - | - | | + + + + + | Pulse | 76 | 04/09/2019 4:06 PM | | | | | PST | | + + + + + | Temperature | - | - | | + + + + + | Respiratory Rate | 16 | 04/09/2019 4:06 PM | | | | | PST | | + + + + + | Oxygen Saturation | 99% | 04/09/2019 4:06 PM | | | | | PST | | + + + + + | Inhaled Oxygen | - | - | | | Concentration | | | | + + + + + | Weight | 113.4 kg (250 lb) | 04/09/2019 4:06 PM | | | | | PST | | + + + + + | Height | 175.3 cm (5' 9") | 04/09/2019 4:06 PM | | | | | PST | | + + + + + | Body Mass Index | 36.92 | 04/09/2019 4:06 PM | | | | | PST | | + + + + + documented in this encounter Progress Notes Dontrell Matos MD - 04/09/2019 4:30 PM PSTPatient comes in for evaluation of her hearing a nd also complaining that at times she feels off balance. She gets some pain and discomfort and irritation in both ears. She does not note any spinning sensation but at times feels a bit off balance. She tends to run low blood pressure and at times she indicates she may be slightly lightheaded. She has not had any actual fainting and never falls down but just fee ls a bit off balance. No difficulty with swallowing and no change in her vocal function. N o drainage from the ears and she at times has a bit of itchiness present in both ears. Examination: Patient is an alert 28-year-old female patient in no acute distress. Skin of the face nose and ears all appear to be smooth and healthy. Ear canals are open and clean b ut though skin is very thin and dry and she appears to have eczema in both ears. The drums are clear no middle ear fluid noted. In the oral cavity no mass or lesions are noted. No m ass seen in the oropharynx and posterior pharyngeal wall is smooth. Tongue and soft palate are smooth to move symmetrically. In the nasal passages no obstruction was noted. There ne ck is smooth without any mass or lymphadenopathy present. Thyroid, parotid and submandibula r glands all felt smooth. Patient's tympanograms were both A tympanograms. Her speech rece ption threshold is 10 dB bilaterally. Her speech discrimination scores were both 100%. Impression: Bilateral ear canal eczema. #2 balance dysfunction. Plan: Patient is given a prescription of Diprolene ointment to apply a thin layer to the ea r canals to stop the eczema. If she has increasing problems with balance she will recheck w ith ENT but reassured that this sounds more has a mild dysfunction that no treatment is avai lable or needed. document ed in this encounter Plan of Treatment Not on filedocumented as of this encounter Visit Diagnoses + + | Diagnosis | + + | Eczema of external ear, bilateral - Primary | + + | Central nervous system origin vertigo Vertigo of central origin | + + documented in this encounter
--- OUTSIDE RECORDS SUMMARY | ~2019-07-25 | XMS | Encounter Summary ---
Demographics + + + | Address | [address] | | | [place] [address] | + + + | Home Phone | | + + + | Preferred Language | Unknown | + + + | Marital Status | Single | + + + | Mosque Affiliation | Unknown | + + + | Race | Unknown | + + + | Ethnic Group | Unknown | + + + Author + + + | Author | [facility] | | | and Leonelana | + + + | Organization | [facility] | | | and Leonelana | [...] Team Providers + +------+ + | Care Grain Spouter Name | Role | Phone | + [...] | | | | | and | [address] | [address] | | | | | giddiness | [address] | [address] | | | | | | [place], | [place], | | | | | | [place] [address] | [place] [address] | | | | | | Phone: | Phone: | | | | | | [phone] | [phone] | | | | | | Fax: | Fax: | | | | | | [phone] | [phone] | + +--------+ + + + + Encounter Details +--------+---------+ + + + | Date | Type | Department | Care Team | Description | +--------+---------+ + + + | 04/09/ | Office | [facility] | Dontrell Matos MD | Eczema of external | | 2020 | Visit | [address]OLARYNGOLOGY [address] | [address] [place] | ear, bilateral | | | | [address] | [address], | (Primary Dx); | | | | [place], [place] | [place] [address] | Central nervous | | | | [address] | [phone] | system origin | | | | [phone] | | vertigo | +--------+---------+ + + [...]
--- OUTSIDE RECORDS SUMMARY | ~2019-07-25 | XMS | Encounter Summary ---
Demographics + + + | Address | [address] | | | [place] [address] | + + + | Home Phone | | + + + | Preferred Language | Unknown | + + + | Marital Status | Single | + + + | Rastafarian Affiliation | Unknown | + + + | Race | Unknown | + + + | Ethnic Group | Unknown | + + + Author + + + | Author | [facility] | | | and Leonelana | + + + | Organization | [facility] | | | and Leonelana [...] Team Providers + +------+ + | Care Financial Services Manager Name | Role | Phone | + +------+ + | Shantel Rodrigues | PCP | | + +------+ + Reason for Visit Evaluate & Treat (Routine) + +--------+ + + + + | Status | Reason | Specialty | Diagnoses / | Referred By | Referred To | | | | | Procedures | Contact | Contact | + +--------+ + + + + | Authorized | | Audiology | Diagnoses | Ravi | [place] | | | | | Dizziness | CHARLOTTE Funes | Audiology And | | | | | and | [address] | Hearing Aid | | | | | giddiness | [address] | [address] | | | | | | [place], | [address] | | | | | | [place] [address] | [address] | | | | | | Phone: | [place], | | | | | | [phone] | [place] [address] | | | | | | Fax: | Phone: | | | | | | [phone] | [phone] | | | | | | | Fax: | | | | | | | [phone] | + +--------+ + + + + Encounter Details +--------+---------+ + + + | Date | Type | Department | Care Team | Description | +--------+---------+ + + + | 04/09/ | [facility] | [facility] [place] | [place], [place] | Normal hearing noted | | 2020 | Visit | AUDIOLOGY AND | [facility] [address] | on examination | | | | HEARING AID SERVICES | [address] [place] | (Primary Dx); Ear | | | | [address] | [facility] [place] [address] | pain, right | | | | [address] [place] | [phone] | | | | | [place] [address] | | | | | | [phone] | | | +--------+---------+ + + + Social History [...] + + documented as of this encounter Progress Notes Shayla Coving[place] CCC-A - 04/09/2019 3:45 PM PSTReferring Provider: CHARLOTTE Mora Mrs. Paul presents with pain in the right ear as well as dizziness. Results of Hearing Test: Right ear--Pure tone air and bone conduction testing showed 10-20d B threshold at 250 Hz through 8 KHz. Left ear --Pure tone air and bone conduction testing showed 10-20dB threshold at 250 Hz through 8 KHz. Speech Recognition Thresholds were 10dB in the right ear and 10dB in the left ear. Speech Discrimination Scores were 100% in right ear and 100% in the left ear. Tympanometry showed normal type A tracings in both ears. Impression and Recommendation: Normal hearing sensitivity in both ears. Pain in the right ear. Follow-up care with Dr. Matos, Sr. Thank you. documented in thi s encounter Plan of Treatment Not on filedocumented as of this encounter Procedures + +--------+ + + + | Procedure Name | Priori | Date/Time | Associated Diagnosis | Comments | | | ty | | | | + +--------+ + + + | DIAGNOSTIC REPORT - | | 04/09/2019 | | Results for this | | EXTERNAL SCAN | | 12:00 AM | | procedure are in the | | | | PST | | results section. | + +--------+ + + + documented in this encounter Results DIAGNOSTIC REPORT - EXTERNAL SCAN (04/09/2019 12:00 AM PST) + + + | Narrative | Performed At | + + + | Ordered by an | | | unspecified provider. | | + + + documented in this encounter Visit Diagnoses + + | Diagnosis | + + | Normal hearing noted on examination - Primary | + + | Ear pain, right | + + documented in this encounter"
--- OUTSIDE RECORDS SUMMARY | ~2019-07-25 | XMS | Clinical Summary ---
Demographics + + + | Address | [address] [place] [address] [address] | | | [place] [address] | + + + | Home Phone | | + + + | Preferred Language | Unknown | + + + | Marital Status | Single | + + + | Holiness Affiliation | Unknown | + + + | Race | Unknown | + + + | Ethnic Group | Unknown | + + + Author + + + | Author | [facility] | | | and Leonelana | + + + | Organization | [facility] | | | and Leonelana [...] Team Providers + +------+ + | Care Spike Driver Name | Role | Phone | + +------+ + | Shantel RodriguesP | PCP | | + +------+ + Allergies No [...] | + + + +---------+------+------+-------+ Active Problems No known active problems Social History + +-------+ +--------+------+ | Tobacco [...] | | + + + + + Plan of Treatment + + + + + | Health Maintenance | Due Date | Last Done | Comments | + + + + + | Vaccine: | | | | | Dtap/Tdap/Td (1 - | 3 | | | | Tdap) | | | | + + + + + | Cervical Cancer | | | | | Screening (Pap) | 3 | | | + + + + + | Vaccine: Influenza | | | | | (Season Ended) | 0 | | | + + + + [...] | [employer] | MODA | [id number] | | [phone] | | Medica | | MEDICAID HMO [...] + +--------+ +--------+ + + | Lisseth Paul | Person | Self | [birth year] | | [address] | | | al/Fam | | 1990 | [phone] | [place] | | | henna | | | 2 (Home) | [address] | + +--------+ +--------+ + + Advance Directives + + + + + | Type | Date Recorded | Patient | Explanation | | | | Sludge Control Attendant | | + + + + + | Power of | | | | | Semiconductor Wafers Etcher Stripper | | | | + + + + + | Advance | 02/19/2017 8:18 | | | | Directive | PM | | | + + + + +
--- OUTSIDE RECORDS SUMMARY | ~2019-07-25 | XMS | Clinical Summary ---
Demographics + + + | Address | [address] [place] [address] [address] | | | [place] [address] | + + + | Home Phone | | + + + | Preferred Language | Unknown | + + + | Marital Status | Single | + + + | Mandaeism Affiliation | Unknown | + + + | Race | Unknown | + + + | Ethnic Group | Unknown | + + + Author + + + | Author | [facility] | | | and Leonelana | + + + | Organization | [facility] | | | and [...] Team Providers + +------+ + | Care Ophthalmic Technologist Name | Role | Phone | + [...] | [employer] | MODA | [id number] | | [phone] | | Medica | | MEDICAID HMO [...] Person | Self | [birth year] | | [address] | | | al/Fam | | 1990 | [phone] | [place] | | | henna | | | 2 (Home) | [address] | + +--------+ +--------+ + + Advance Directives + + + + + | Type | Date Recorded | Patient | Explanation | | | | Oss Architect | | + + + + + | Power of | | | | | Passenger Agent | | | | + + + + + | Advance | 02/19/2017 8:18 | | | | Directive | PM | | | + + + + +
--- OUTSIDE RECORDS SUMMARY | ~2019-07-25 | XMS | Encounter Summary ---
Demographics + + + | Address | [address] | | | [place] [address] | + + + | Home Phone | | + + + | Preferred Language | Unknown | + + + | Marital Status | Single | + + + | Taoism Affiliation | Unknown | + + + | Race | Unknown | + + + | Ethnic Group | Unknown | + + + Author + + + | Author | [facility] | | | and Leonelana | + + + | Organization | [facility] | | | and [...] Team Providers + +------+ + | Care Landscape Account Manager Name | Role | Phone | [...] | | | | | and | [address] | Hearing Aid | | | | | giddiness | [address] | [address] | | | | | | [place], | [address] | | | | | | [place] [address] | [address] | | | | | | Phone: | [place], | | | | | | [phone] | [place] [address] | | | | | | Fax: | Phone: | | | | | | [phone] | [phone] | | | | | | | Fax: | | | | | | | [phone] | + +--------+ + + + + Encounter Details +--------+---------+ + + + | Date | Type | Department | Care Team | Description | +--------+---------+ + + + | 04/09/ | Office | [facility] [place] | [place], [place] | Normal hearing noted | | 2020 | Visit | AUDIOLOGY AND | CCC-A [address] | on examination | | | | HEARING AID SERVICES | [address] [place] | (Primary Dx); Ear | | | | [address] | [place] [address] | pain, right | | | | [address] [place] | [phone] | | | | | [place] [address] | | | | | | [phone] | | | +--------+---------+ + + + [...]
--- OUTSIDE RECORDS SUMMARY | ~2019-07-25 | XMS | Encounter Summary ---
Demographics + + + | Address | [address] | | | [place] [address] | + + + | Home Phone | | + + + | Preferred Language | Unknown | + + + | Marital Status | Single | + + + | Anglican Affiliation | Unknown | + + + | Race | Unknown | + + + | Ethnic Group | Unknown | + + + Author + + + | Author | [facility] | | | and Leonelana | + + + | Organization | [facility] | | | and [...] Team Providers + +------+ + | Care Dandy Tender Name | Role | Phone | + +------+ + PCP | Unavailable | + +------+ + Encounter Details +--------+ + + + + | Date | Type | Department | Care Team | Description | +--------+ + + + + | 06/16/ | Hospital | [facility] | [place], | | | 1993 | Encounter | [facility] | [address] | | | | | GENERIC CONV DEPT 6 | [place] | | | | | [place], | [address] | | | | | [place] [address] | | | | | | [phone] | | | +--------+ + + + [...]
[~2019-07-25 09:09] MED LIST changes: +ATIVAN1 MG PO
--- OUTSIDE RECORDS SUMMARY | 2019-07-25 09:12 | XMS ---
PreManage Notification: MICHELLE FELIX Security Spray Pilot Events No recent Security Events currently on file CRITERIA MET - Group Notification - [facility] - Has Care Guidelines CARE PROVIDERS CONSTANTINO KIDD [facility] 11/07/2017-Current PHONE: Unknown AZUCENA WINSTON Nurse Practitioner 10/25/2018-Current PHONE: [phone] Alexus has no Care Guidelines for this patient. Care History Medical/Surgical 05/29/2018 [facility] \T\middot;\T\nbsp; PATIENT IS A [employer] MEMBER. \T\middot;\T\nbsp; PLEASE REFER PATIENT TO [facility] FOR NON EMERGENT MEDICAL NEEDS. \T\middot;\ T\nbsp; [facility] CAN SEE PATIENTS SAME DAY FOR APTS IF PATIENT CALLS FIRST THING IN THE MORNING. E.D. VISIT COUNT (12 MO.) 2 [facility] Marx TOTAL 2 NOTE: Visits indicate total known visits. ED/UCC VISIT TRACKING (12 MO.) 07/25/2019 09:09 [facility] [place] TYPE: Emergency COMPLAINT: - ABD PAIN 10/24/2018 15:59 [facility] [place] TYPE: Emergency COMPLAINT: - CHEST PAIN DIAGNOSES: - Panic disorder [episodic paroxysmal anxiety] - Reaction to severe stress, unspecified - Acute stress reaction - Other chest pain INPATIENT VISIT TRACKING (12 MO.) No inpatient visits to display in this time frame [email or web address]
[2019-07-25] MEDS ORDERED: ZOFRAN4 MG PO (10:41)
== END 2019-07-25 11:08 | disposition home or self-care (01) ==
LOC: ED 09:09
DX: K52.9 Noninfective gastroenteritis and colitis, unspecified (principal)
CPT/HCPCS: 80053; 81001; 83690; 84703; 85025; 96374; 99284-25; J2405; J7121

== ENCOUNTER 2021-07-31 17:07 | Emergency (ER) | payer OTHER ==
[~2021-07-31] VITALS: Ht 175.3 cm; Wt 113.4 kg
[~2021-07-31 17:07] MED LIST changes: +ZOFRAN4 MG PO
--- OUTSIDE RECORDS SUMMARY | 2021-07-31 17:14 | XMS ---
PreManage Notification: MICHELLE FELIX Security Trouble Clerk Events No recent Security Events currently on file CRITERIA MET - Group Notification CARE PROVIDERS CONSTANTINO KIDD [facility] 11/07/2017-Current PHONE: [phone] AZUCENA WINSTON Nurse Practitioner 10/25/2018-Current PHONE: [phone] [facility] 07/28/2019-[facility] PHONE: [phone] Alexus has no Care Guidelines for this patient. Care History Medical/Surgical 05/29/2018 [facility], \T\middot;\T\nbsp; PLEASE REFER PATIENT TO [facility] FOR NON EMERGENT MEDICAL NEEDS. \T\middot;\T\nbsp; [facility] CAN SEE PATIENTS SAME DAY FOR APTS IF PATIENT CALLS FIRST THING IN THE MORNING. Vince VISIT COUNT (12 MO.) 1 JASON Marx TOTAL 1 NOTE: Visits indicate total known visits. ED/UCC VISIT TRACKING (12 MO.) 07/31/2021 17:08 JASON Fernandez [place] TYPE: Emergency COMPLAINT: - INHALED TOXIC FUMES INPATIENT VISIT TRACKING (12 MO.) No inpatient visits to display in this time frame [email or web address]
== END 2021-07-31 18:30 | disposition home or self-care (01) ==
LOC: ED 17:07
DX: F11.99 Opioid use, unspecified with unspecified opioid-induced disorder (principal)
CPT/HCPCS: 99283

== ENCOUNTER 2022-11-30 21:58 | Emergency (ER) | payer OTHER ==
[~2022-11-30] VITALS: Ht 175.3 cm; Wt 118.2 kg
--- OUTSIDE RECORDS SUMMARY | 2022-11-30 22:06 | XMS ---
PreManage Notification: MICHELLE FELIX Security Bulk Driver Events No recent Security Events currently on file CRITERIA MET - Group Notification CARE PROVIDERS HUSSAIN [facility] 07/28/2019-[facility] PHONE: [phone] AZUCENA WINSTON Nurse Practitioner 10/25/2018-Current PHONE: [phone] CONSTANTINO KIDD [facility] 11/07/2017-Current PHONE: [phone] -Jenna- Dentist: [employer] [facility] PHONE: [phone] Alexus has no Care Guidelines for this patient. Care History Medical/Surgical 05/29/2018 [facility] - PATIENT IS A [place] ELIGIBLE, \T\middot;\T\nbsp; PLEASE REFER PATIENT TO [facility] FOR NON EMERGENT MEDICAL NEEDS. \T\middot;\T\nbsp; [facility] CAN SEE PATIENTS SAME DAY FOR APTS IF PATIENT CALLS FIRST THING IN THE MORNING. E.D. VISIT COUNT (12 MO.) 1 [facility]. TOTAL 1 NOTE: Visits indicate total known visits. ED/UCC VISIT TRACKING (12 MO.) 11/30/2022 21:59 JASON Fernandez [place] TYPE: Emergency COMPLAINT: - HEADACHE INPATIENT VISIT TRACKING (12 MO.) No inpatient visits to display in this time frame [email or web address]
[2022-11-30] MEDS ORDERED: ONDANSETRON ODT8 MG PO (23:48)
[2022-12-01 00:16] VITALS: BP 130/79
== END 2022-12-01 00:17 | disposition home or self-care (01) ==
LOC: ED 21:58
DX: S06.0XAA Concussion with loss of consciousness status unknown, initial encounter (principal); W18.09XA Striking against other object with subsequent fall, initial encounter; Y92.009 Unspecified place in unspecified non-institutional (private) residence as the place of occurrence of the external cause
CPT/HCPCS: 70450; 99283-25; A9270

== ENCOUNTER 2025-02-08 18:51 | Emergency (ER) | payer BC, OTHER ==
[~2025-02-08] VITALS: Ht 175.3 cm; Wt 128.5 kg
[~2025-02-08 18:51] MED LIST changes: +ONDANSETRON ODT8 MG PO
[2025-02-08 20:54] LABS: INFLUENZA B NAA NEGATIVE (NEGATIVE); RESPIRATORY SYNCYTIAL VIR NAA NEGATIVE (NEGATIVE)
== END 2025-02-08 21:25 | disposition home or self-care (01) ==
LOC: ED 18:51
PROVIDERS: Family Medicine
DX: J02.9 Acute pharyngitis, unspecified (principal)
CPT/HCPCS: 87502; 87651; 99283; U0002